=== PATIENT | male | born 1955 | race Caucasian/White ===

== ENCOUNTER 2018-08-13 10:27 | Outpatient (CLI) | payer BC, SELFPAY ==
[2018-08-14 10:15] LABS: PSA, Screening 9.1 ng/ml (0-4.5)
== END 2018-08-13 10:47 ==
PROVIDERS: Nurse Practitioner Gerontology; PCP Internal Medicine; Visit Provider Urology
DX: R97.20 Elevated prostate specific antigen [PSA] (principal)
CPT/HCPCS: 36415; 84153

== ENCOUNTER 2018-08-28 00:48 | Outpatient (CLI) | payer BC, SELFPAY ==
--- NOTE | 2018-08-28 10:40 | PROST_PTH ---
PATIENT: Dionicio Don LOC: [facility] U#:[id number] AGE/SX: 63/M ROOM: RE08/28/[address]: Jonas Cleveland MD : 1955 BED: DIS: 08/28/2018 SPEC #: [id number] RECD: 08/28/18 12:58 STATUS: BRIANNE RE #: [id number] SEPIDEH: 08/28/18 10:[address]: Jonas Cleveland DEPT: Surgical Specimen RECD BY: April Sanchez ENTERED: 08/28/18 12:59 SP TYPE: PROST OTHR DR: Jae Lerma Tissues: 1 - PROSTATE NEEDLE BIOPSY 2 - PROSTATE NEEDLE BIOPSY 3 - PROSTATE NEEDLE BIOPSY 4 - PROSTATE NEEDLE BIOPSY 5 - PROSTATE NEEDLE BIOPSY 6 - PROSTATE NEEDLE BIOPSY 7 - PROSTATE NEEDLE BIOPSY 8 - PROSTATE NEEDLE BIOPSY 9 - PROSTATE NEEDLE BIOPSY 10 - PROSTATE NEEDLE BIOPSY 11 - PROSTATE NEEDLE BIOPSY 12 - PROSTATE NEEDLE BIOPSY Procedures: GROSS AND MICRO LEVEL 4 IMMUNOPEROXIDASE STAIN Comments: [id number]
--- NOTE | 2018-08-28 10:53 | OPPNE_ITS ---
Date of service: 08/28/18 Time of Service: 10:49 Procedure Note Date of procedure: 08/28/18 Procedure: Transrectal ultrasound with ultrasound- guided biopsies of the prostate Surgeon/Proceduralist/Physician: Jonas Cleveland Procedure Diagnosis: Elevated PSA Procedure Indications: This is a 63-year-old gentleman with a history of an elevated PSA. He had a prostate biopsy about 10 years ago which showed no evidence of malignancy. Since then, his PSA has fluctuated, but has recently increased to 9.1 ng/mL. His digital rectal exam shows no suspicious palpable areas. He presents for repeat biopsy Procedure Description: The patient was given a pre-procedural antibiotic and mechanical bowel prep. He was brought to the radiology suite on 08/28/2018. He was placed in the left lateral position. Transrectal imaging the prostate was performed using a transrectal transducer. The prostate was imaged in transverse and longitudinal planes. The prostatic volume measured approximately 62 cc. A midline hypoechoic area was identified consistent with an ejaculatory duct cyst. The transition zone was enlarged and compressed the peripheral zone. No hypoechoic areas were seen in the peripheral zone. A periprosthetic nerve block was then performed using 1% lidocaine. A total of 12 laterally directed biopsies were to. Each biopsy was labeled and sent to pathology for permanent section. He tolerated this procedure well with no complications. He was cautioned about the possibility of postprocedural sepsis, blood in the urine, blood from the rectum or blood in the semen. He will follow-up with us in approximately 1 week for his pathology results
--- NOTE | 2018-08-28 10:57 | DI.US_ITS ---
SYMPTOMS/DIAGNOSIS: INCREASING PSA FROM 6.4 TO 9.1, R97.20 ULTRASOUND GUIDED PROSTATE BIOPSY: Ultrasound was provided for Dr. Cleveland for guidance with prostate biopsy. Prostate volume is calculated at 62 cc's. Please see procedure note for details.
== END 2018-08-28 01:08 ==
PROVIDERS: PCP Internal Medicine; Visit Provider Urology
DX: R97.20 Elevated prostate specific antigen [PSA] (principal); N40.0 Benign prostatic hyperplasia without lower urinary tract symptoms; N41.1 Chronic prostatitis; N42.89 Other specified disorders of prostate
CPT/HCPCS: 55700; 76942; 88305; 88361

== ENCOUNTER 2018-09-18 09:22 | Outpatient (CLI) | payer BC, SELFPAY ==
--- NOTE | 2018-09-18 13:06 | DI.RAD_ITS ---
SYMPTOMS/DIAGNOSIS: RT SHOULDER PAIN, M25.511 RIGHT SHOULDER: Multiple views. There is orthopedic hardware seen in the humeral head. The glenohumeral joint appears fairly well maintained. Mild hypertrophic changes are seen at the acromioclavicular joint. No acute fracture or dislocation is identified. The soft tissues are unremarkable. IMPRESSION: Mild degenerative changes of the right shoulder. Post surgical changes in the humeral head.
== END 2018-09-18 09:42 ==
PROVIDERS: PCP Internal Medicine; Visit Provider Internal Medicine
DX: M25.511 Pain in right shoulder (principal); M19.011 Primary osteoarthritis, right shoulder
CPT/HCPCS: 73030

== ENCOUNTER 2019-03-08 15:19 | Outpatient (CLI) | payer BC, SELFPAY ==
[2019-03-11 10:20] LABS: PSA, Diagnostic 7.9 ng/ml (0-4.5)
== END 2019-03-08 15:39 ==
PROVIDERS: PCP Internal Medicine; Visit Provider Urology
DX: R97.20 Elevated prostate specific antigen [PSA] (principal); N40.0 Benign prostatic hyperplasia without lower urinary tract symptoms
CPT/HCPCS: 36415; 84153

== ENCOUNTER 2019-09-16 12:33 | Outpatient (CLI) | payer BC, SELFPAY ==
[2019-09-17 16:43] LABS: PSA, Diagnostic 8.7 ng/mL (0.0-4.5)
== END 2019-09-16 12:53 ==
PROVIDERS: PCP Internal Medicine; Visit Provider Urology
DX: R97.20 Elevated prostate specific antigen [PSA] (principal)
CPT/HCPCS: 36415; 84153

== ENCOUNTER 2019-10-28 09:33 | Outpatient (REF) | payer BC, SELFPAY | END 2019-10-28 09:53 | LOC: NCHCN 09:33 | PROVIDERS: PCP Internal Medicine; Visit Provider Family Medicine | DX: Z00.00 Encounter for general adult medical examination without abnormal findings (principal); E78.5 Hyperlipidemia, unspecified | CPT/HCPCS: 80053; 80061 ==

== ENCOUNTER 2020-03-24 04:48 | Outpatient (CLI) | payer BC, SELFPAY ==
[2020-03-25 18:27] LABS: PSA, Diagnostic 7.8 ng/mL (0.0-4.5)
== END 2020-03-24 05:08 ==
PROVIDERS: PCP Internal Medicine; Visit Provider Urology
DX: R97.20 Elevated prostate specific antigen [PSA] (principal)
CPT/HCPCS: 36415; 84153

== ENCOUNTER 2020-07-29 17:27 | Outpatient (REF) | payer BC, SELFPAY ==
[2020-07-30 21:14] LABS: COVID-19 RT-PCR UVMMC Result Negative (Negative)
== END 2020-07-29 17:47 ==
LOC: NCHCN 17:27
PROVIDERS: PCP Internal Medicine; Visit Provider Internal Medicine
DX: Z20.828 Contact with and (suspected) exposure to other viral communicable diseases (principal)
CPT/HCPCS: U0003

== ENCOUNTER 2020-08-03 13:26 | Outpatient (REF) | payer BC, SELFPAY ==
[2020-08-04 21:52] LABS: COVID-19 RT-PCR Result NEGATIVE (Negative)
== END 2020-08-03 13:46 ==
LOC: NCHCN 13:26
PROVIDERS: PCP Internal Medicine; Visit Provider Internal Medicine
DX: Z20.822 Contact with and (suspected) exposure to COVID-19 (principal)
CPT/HCPCS: U0003

== ENCOUNTER 2020-10-08 02:44 | Outpatient (CLI) | payer BC, SELFPAY ==
[2020-10-08 21:50] LABS: PSA, Diagnostic 9.3 ng/mL (0.0-4.5)
== END 2020-10-08 02:45 | disposition home or self-care (01) ==
LOC: LBO 02:45
PROVIDERS: PCP Internal Medicine; Visit Provider Urology
DX: R97.20 Elevated prostate specific antigen [PSA] (principal)
CPT/HCPCS: 36415; 84153

== ENCOUNTER 2021-04-21 03:41 | Outpatient (CLI) | payer BC, SELFPAY ==
[2021-04-22 17:57] LABS: PSA, Diagnostic 9.6 ng/mL (0.0-4.5)
== END 2021-04-21 03:42 | disposition home or self-care (01) ==
PROVIDERS: PCP Internal Medicine; Visit Provider Nurse Practitioner Gerontology
DX: R97.20 Elevated prostate specific antigen [PSA] (principal)
CPT/HCPCS: 36415; 84153

== ENCOUNTER 2021-07-21 17:37 | Outpatient (REF) | payer BC, SELFPAY ==
[2021-07-21 21:15] LABS: HCT 49.3 % (40.0-50.0); HGB 16.3 g/dL (13.5-17.5); MCH 29.9 pg (27.0-33.0); MCHC 33.1 % (32.0-36.0); MCV 90.3 fL (80-95); MPV 10.3 fL (8.0-11.0); Platelet Count 399 10^3/uL (130-400); RBC 5.46 10^6/uL (4.36-5.78); RDW 11.8 % (11.8-14.1); RDW-SD 38.9 fL; WBC 8.34 10^3/uL (4.4-10.8)
[2021-07-21 21:22] LABS: ALT 46 U/L (16-63); AST 23 U/L (15-37); Albumin 4.1 g/dL (3.4-5.0); Alkaline Phosphatase 94 U/L (46-116); Anion Gap 8.6 mmol/L (3-11); BUN 18 mg/dL (7-18); Bilirubin, Total 0.4 mg/dL (0.2-1.0); CO2 27.4 mmol/L (21.0-32.0); CREATININE 1.2 mg/dL (0.70-1.30); Calcium 8.9 mg/dL (8.5-10.1); Chloride 104 mmol/L (98-107); Glucose 89 mg/dL (74-106); Potassium 4.2 mmol/L (3.5-5.1); Sodium 140 mmol/L (136-145); Total Protein 7.5 g/dL (6.4-8.2)
[2021-07-23 11:30] LABS: Hepatitis C Ab w Rflx HCV PCR Negative (Negative)
[2021-07-23 11:55] LABS: HIV-1/2 Ag & Ab Screen Negative (Negative)
== END 2021-07-21 17:38 | disposition home or self-care (01) ==
LOC: NCHCN 17:37
PROVIDERS: PCP Internal Medicine; Visit Provider Family Medicine
DX: E66.9 Obesity, unspecified (principal); Z00.00 Encounter for general adult medical examination without abnormal findings; Z11.4 Encounter for screening for human immunodeficiency virus [HIV]; Z11.59 Encounter for screening for other viral diseases
CPT/HCPCS: 80053; 85027; 86803; 87389

== ENCOUNTER 2021-10-20 03:10 | Outpatient (CLI) | payer BC, SELFPAY ==
[2021-10-20 22:45] LABS: PSA, Diagnostic 11.8 ng/mL (0.0-4.5)
== END 2021-10-20 03:11 | disposition home or self-care (01) ==
LOC: LBO 03:10
PROVIDERS: PCP Internal Medicine; Visit Provider Nurse Practitioner Gerontology
DX: R97.20 Elevated prostate specific antigen [PSA] (principal)
CPT/HCPCS: 36415; 84153

== ENCOUNTER 2021-10-26 17:33 | Outpatient (REF) | payer BC, SELFPAY | END 2021-10-26 17:34 | disposition home or self-care (01) | LOC: LBN 17:33 | PROVIDERS: PCP Family Medicine; Visit Provider Nurse Practitioner Gerontology | DX: R97.20 Elevated prostate specific antigen [PSA] (principal); Z01.812 Encounter for preprocedural laboratory examination | CPT/HCPCS: 82565 ==

== ENCOUNTER 2022-02-02 08:04 | Day surgery (SDC) | payer BC, SELFPAY ==
--- NOTE | 2022-02-02 06:27 | COLE_ITS ---
Colonoscopy Report Date of procedure: 02/02/22 Pre-op diagnosis general: Colon cancer screening Post-op diagnosis procedure note: other (mild diverticulosis and rectal polyps) Procedure: Colonoscopy with polypectomy Surgeon: Leanna Holloway Anesthesia Type: General:No Airway Estimated blood loss (mL): 2 Pathology: other (rectal polyps) Complications: None Disposition: same day Indications: The patient is here for Colonoscopy pre-op.? Patient reports having had a colonoscopy approximately 5 years ago.? Unable to locate these documents in patient's chart.? He has no family history of colon cancer patient reports a family history of Crohn's disease in his brother and a maternal aunt..? Patient describes noting some changes in his bowel habits which he directly correlates with his diet. -Discussed colonoscopy bowel prep as well as the procedure. Discussed possible c omplications of the procedure to include bleeding, pain, perforation, missed small lesion/polyp, sore throat, aspiration and adverse reaction to the medications. Questions were answered to patient?s satisfaction. No guarantees were implied or given.? Patient will hold his vitamins and herbal supplements for 5 days prior to his procedure. I spent 28? minutes in reviewing the record, seeing the patient, providing patient education, answering patient's questions and documenting in the medical record. P// Colonoscopy under sedation Prep: Miralax/Dulcolax Procedure Start Time: 10:57 Procedure End Time: 11:13 Retraction Time: 9 minutes Findings: 2 small polyps Procedure Description: After informed consent was obtained the patient was taken to the procedure room and placed in a left decubitous position. Monitors were applied and a time out was done. The patients name, date of , procedure, allergies to medications and metal in their body was reviewed. The patient was then sedated. Once sedated and comfortable a rectal exam was done. External exam was normal. Internal exam revealed a normal sphincter tone and no palpable masses. The prostate felt smooth and enlarged. The scope was then introduced and retro-flexed. No internal hemorrhoids, polyps or masses were identified on retro-flexion. The scope was then advanced to the cecum without difficulty. The ileocecal vlave and appendiceal orifice were identified. The prep was good. The scope was then slowly retracted over 9 minutes back into the rectum. Polyps were removed with cold forceps in the rectum. There was mild descending colon and sigmoid colon diverticulosis noted. The scope was removed and the patient was woken up and taken back to Same day surgery in stable condition. The patient tolerated the procedure well and there were no immediate complications.
--- NOTE | 2022-02-02 06:31 | W.PM.DSUDISC ---
Discharge Plan Disposition Patient Disposition: HOME Condition: Good Discharge Details Reason For Visit: colonoscopy Attending Provider: Leanna Holloway Primary Care Provider: Sudarshan Lassiter Home Meds and New Rx's Prescriptions: Continued ibuprofen 200 mg capsule 200 mg PO Q6H PRN ascorbate calcium (vitamin C) 500 mg tablet 500 mg PO DAILY vitamin B complex [B Complex-Vitamin B12] Tablet 1 tab PO DAILY Discontinued bisacodyl [Dulcolax (bisacodyl)] 5 mg tablet,delayed release (DR/EC) 5 mg PO ONCE Qty: 4 0RF Rx Instructions: Take according to provider's instructions for colonoscopy prep. polyethylene glycol 3350 17 gram/dose powder 17 g PO ONCE Qty: 238 0RF Rx Instructions: To be taken as directed by prescriber's office for colonoscopy prep. Discharge Instructions Instructions: Diverticulosis (DC) Additional Instructions: Findings: 2 small polyps mild diverticulosis Please call if you develop: fevers >101.5 Nausea or Vomiting Abdominal pain that is not transient Rectal bleeding that is more then a tbsp A hard abdomen and inability to pass gas DAY SURGERY UNIT POST ENDOSCOPY INSTRUCTIONS Instructions for everyone who is given Anesthesia: For your safety, please do the following for the next 24 Hours: a. Do not drive or operate dangerous equipment b. Do not drink alcohol beverages or use any recreational drugs for the first 24 hours or while taking pain medications. The medications in your body may have a reaction that can be dangerous. c. Do not make any important decisions or sign any important papers 1. Generally there are no restrictions on your activity after a day or so has gone by, but you may feel a bit fatigued for a few days. 2. After you arrive home you may have a light meal and return to a normal diet as you can tolerate it without feeling sick to your stomach. 3. After surgery, you may feel pain or discomfort. This should be only transient, but if it persists please contact your doctor. 4. If there are any questions regarding the findings of your procedure, please feel free to contact your doctor. 6. If you are unable to contact your doctor with a problem, contact the hospital at [phone]. 7. Continue all your regular medications unless directed otherwise. I understand the above instructions and have no questions. Signature of Patient or Responsible Adult Escort Date/Time Name of Responsible Adult Escort Signature of Nurse Date/Time Activity:: Activity as Tolerated Diet:: As Tolerated Discharge Orders Discharge Orders: Discharge Order (Routine); Ordered 02/02/22 Ordered By: Leanna Holloway
[2022-02-02 08:30] VITALS: BP 132/88; PULSE 76; RESP 16; TEMP 37; O2SAT 95
[2022-02-02] MEDS: Lactated Ringers 1,000 ML 80 ML IV (08:42)
--- NOTE | 2022-02-02 09:36 | W.ANESPRE ---
General Info Date of Service Date Performed: 02/02/22 Height: 5 ft 10 in Weight: 103.3 kg Body Mass Index (BMI): 32.6 Surgical Procedure: Operation Date: 02/02/22 10:35 Proposed Procedure Side Surgeon p Colonoscopy Leanna Holloway MD Meds Allergies and Home Medications Allergies Allergy/AdvReac Type Severity Reaction Status Date / Time acetaminophen [From Tylenol] Allergy Mild Skin Rash Verified 02/02/22 08:30 Home Medication Medication Instructions Recorded ibuprofen 200 mg capsule 200 mg PO Q6H PRN 09/20/19 ascorbate calcium (vitamin C) 500 500 mg PO DAILY 01/06/22 mg tablet bisacodyl 5 mg tablet,delayed 5 mg PO ONCE #4 tabs 01/06/22 release (Dulcolax (bisacodyl)) polyethylene glycol 3350 17 17 g PO ONCE #238 grams 01/06/22 gram/dose oral powder vitamin B complex (B 1 tab PO DAILY 01/06/22 Complex-Vitamin B12 tablet) Current Visit Medications: Current Medications Generic Name Dose Route Start Last Admin Trade Name Morganq PRN Reason Stop Dose Admin Hyoscyamine Sulfate 0.125 mg 02/02/22 06:31 Hyoscyamine 0.125 Mg Sl/Oral/Chew SL DIRECTED PRN Ringer's Solution 1,000 mls @ 80 mls/hr 02/02/22 06:00 02/02/22 08:42 IV 03/03/22 23:59 80 mls/hr INFUSION WILMA Administration IV Miscellaneous Supplies 1 each 02/02/22 06:00 Iv Access IV 03/03/22 23:59 DIRECTED WILMA Ondansetron HCl 4 mg 02/02/22 06:31 Ondansetron 4 Mg/2 Ml Vial IVP Q4H PRN PRN Nausea / Vomiting Sodium Chloride 0 ml 02/02/22 06:00 Normal Saline Flush 10 Ml Syr IV 03/03/22 23:59 PRN PRN Sodium Chloride 0 ml 02/02/22 06:00 Normal Saline 10 Ml Vial IJ 03/03/22 23:59 DIRECTED PRN Sterile Water 0 ml 02/02/22 06:00 Water,Injection,Sterile 10 Ml Vial IJ 03/03/22 23:59 DIRECTED PRN PFSH Active Problems Active Problems: Problem Status Onset Code Diarrhea R19.7 Screening for colon cancer Z12.11 CHRISSIE (obstructive sleep apnea) G47.33 Medical History Medical History (Updated 02/02/22 @ 08:29 by Peggy King) Deviated nasal septum (05/28/15) Dislocation of right shoulder joint Elevated PSA (02/08/18) Hypertrophy of inferior nasal turbinate (05/28/15) Nasal obstruction (05/28/15) Surgical History Surgical History (Updated 02/02/22 @ 08:29 by Peggy King) Status post total right knee replacement Tobacco Smoking/Tobacco Use Status: Never Alcohol Alcohol Intake: current Alcohol intake frequency: a few times a week Alcohol type: beer Substance Use Substance use: Never Substance use type: does not use Vital Signs and Lab Results Vital Signs Most Recent Vital Signs in EMR: Most Recent Vital Signs Temp Pulse Resp BP Pulse Ox 37.0 C 76 16 132/88 95 02/02/22 08:30 02/02/22 08:30 02/02/22 08:30 02/02/22 08:30 02/02/22 08:30 Lab Results Blood Type / Crossmatch: No Data to Display Complete Blood Count: No Data to Display Complete Metabolic Panel: No Data to Display Liver Function Panel: No Data to Display Coagulation Panel: No Data to Display Cardiac Panel: No Data to Display Arterial Blood Gas: No Data to Display Venous Blood Gas: No Data to Display Pancreas Panel: No Data to Display Thyroid Panel: No Data to Display Infectious Disease: No Data to Display Blood Cultures: No Data to Display Toxicology Panel: No Data to Display Anesthesia Assessment and Plan Anesthesia History Personal History: No History of Anesthesia Complications Family History: No Family History of Anesthesia Complications Exercise Tolerance Exercise Tolerance: Metabolic Equivalents>4 Pertinent Negatives Pertinent Negatives: No Symptoms of GERD, No Major Cardiovascular Symptoms or Complaints and No Major Pulmonary Symptoms or Complaints Cardiac & Pulmonary Exam Cardiac Exam: Normal S1/S2 Heart Sounds Pulmonary Exam: Clear Bilateral Breath Sounds Implantable Cardiac Device Does patient have a Pacemaker or an ICD?: No Airway Exam Known Difficult Airway: No Mallampati Class: 1 Mouth Opening: Normal (> 3cm) Thyromental Distance: Greater than 3 cm Neck Range of Motion: Full ROM Neck Circumference: Normal Teeth Condition: Normal Dentition ASA Classification ASA Score: ASA 2 Emergency Case?: No NPO Status NPO Status: NPO Clears >2 hours, Solids >8 hours Anesthesia Plan Resuscitation Status: Full Code Anesthesia Technique: General Anesthesia Airway Planned: Natural Airway Monitors Used: Standard Monitors
[2022-02-02 09:39] VITALS: BMI 32.6
--- NOTE | 2022-02-02 11:13 | BOWEL_PTH ---
PATIENT: Dionicio Don LOC: [facility] U#:[id number] AGE/SX: 66/M ROOM: RE02/02/[address]: Leanna Holloway MD : 1955 BED: DIS: 02/02/2022 SPEC #: [id number] RECD: 02/02/22 12:49 STATUS: BRIANNE REQ #: [id number] SEPIDEH: 02/02/22 11:[address]: Leanna Holloway DEPT: Surgical Specimen RECD BY: April Sanchez ENTERED: 02/02/22 12:50 SP TYPE: Bowel OTHR DR: Sudarshan Lassiter Tissues: 1 - BIOPSY BOWEL Procedures: GROSS AND MICRO LEVEL 4 Comments: [id number]
[2022-02-02 11:25] VITALS: BP 107/78; PULSE 83; RESP 18; TEMP 36.1; O2SAT 95
--- NOTE | 2022-02-02 11:37 | W.ANESPOSTOP ---
Postoperative Evaluation Date, Time and Location Date Performed: 02/02/22 Time Performed: 11:25 Patient Location: Day Surgery Unit Vital Signs Most Recent Imported Vital Signs: Most Recent Vital Signs Temp Pulse Resp BP Pulse Ox 36.1 C L 83 18 107/78 95 02/02/22 11:25 02/02/22 11:25 02/02/22 11:25 02/02/22 11:25 02/02/22 11:25 Pain Score Most Recent Pain Score: Most Recent Pain Score Pain Level 0 02/02/22 11:25 Assessment Mental Status: Awake (Alert & Oriented to Patient Baseline) Airway and Respiratory Function: Patent airway with normal (patient baseline) respiratory exam Cardiovascular Function: Hemodynamically Stable Hydration Status: Adequately Hydrated Nausea & Vomiting: No Nausea or Vomiting Pain: Pt. Denies Any Pain Peripheral Nerve Block: Patient did not receive a nerve block
[2022-02-02 12:00] VITALS: BP 107/66; PULSE 69; RESP 16; TEMP 36.2; O2SAT 96
== END 2022-02-02 12:14 | disposition home or self-care (01) ==
PROVIDERS: PCP Family Medicine; Visit Provider Surgery
PROC: 0DJD8ZZ Inspection of Lower Intestinal Tract, Via Natural or Artificial Opening Endoscopic (ICD-10-PCS; CPT 45378; principal; 2022-02-02 10:30)
DX: Z12.11 Encounter for screening for malignant neoplasm of colon (principal); K62.1 Rectal polyp; K57.30 Diverticulosis of large intestine without perforation or abscess without bleeding; Z83.79 Family history of other diseases of the digestive system; G47.33 Obstructive sleep apnea (adult) (pediatric)
CPT/HCPCS: 45380; 88305

== ENCOUNTER 2022-06-02 11:01 | Outpatient (REF) | payer MEDICARE, BC, SELFPAY ==
[2022-06-02 15:05] LABS: HCT 50.6 % (40.0-50.0); HGB 16.6 g/dL (13.5-17.5); MCH 29.7 pg (27.0-33.0); MCHC 32.8 % (32.0-36.0); MCV 91 fL (80-95); MPV 10.4 fL (8.0-11.0); Platelet Count 358 10^3/uL (130-400); RBC 5.58 10^6/uL (4.36-5.78); RDW 12.2 % (11.8-14.1); RDW-SD 40.6 fL; WBC 5.79 10^3/uL (4.4-10.8)
[2022-06-02 15:20] LABS: ALT 46 U/L (16-63); AST 27 U/L (15-37); Albumin 4.1 g/dL (3.4-5.0); Alkaline Phosphatase 92 U/L (46-116); Anion Gap 5.7 mmol/L (3-11); BUN 18 mg/dL (7-18); Bilirubin, Total 1.1 mg/dL (0.2-1.0); CO2 31.3 mmol/L (21.0-32.0); CREATININE 1.1 mg/dL (0.70-1.30); Calcium 9.2 mg/dL (8.5-10.1); Calculated LDL 122 mg/dL (<100); Chloride 105 mmol/L (98-107); Cholesterol 184 mg/dL (<200); Glucose 88 mg/dL (74-106); HDL Cholesterol 51 mg/dL (40-60); Potassium 5.2 mmol/L (3.5-5.1); Sodium 142 mmol/L (136-145); Total Protein 7.4 g/dL (6.4-8.2); Triglyceride 57 mg/dL (<150)
[2022-06-03 19:52] LABS: PSA, Diagnostic 10.4 ng/mL (<=4.5)
== END 2022-06-02 11:02 | disposition home or self-care (01) ==
LOC: NCHCN 11:01
PROVIDERS: PCP Family Medicine; Visit Provider Family Medicine
DX: R97.20 Elevated prostate specific antigen [PSA] (principal); E66.9 Obesity, unspecified; Z00.00 Encounter for general adult medical examination without abnormal findings
CPT/HCPCS: 80053; 80061; 85027; 84153

== ENCOUNTER 2022-06-21 03:45 | Outpatient (CLI) | payer MEDICARE, BC, SELFPAY ==
[2022-06-22 17:58] LABS: PSA, Diagnostic 12.3 ng/mL (<=4.5)
== END 2022-06-21 03:46 | disposition home or self-care (01) ==
LOC: LBO 03:45
PROVIDERS: PCP Family Medicine; Visit Provider Nurse Practitioner Gerontology
DX: R97.20 Elevated prostate specific antigen [PSA] (principal)
CPT/HCPCS: 36415; 84153

== ENCOUNTER → 2022-06-28 15:25 | Outpatient (BNVA) | payer MEDICARE, BC, SELFPAY | PROVIDERS: PCP Family Medicine; Referring Provider Family Medicine; Visit Provider Nurse Practitioner Gerontology | DX: R97.20 Elevated prostate specific antigen [PSA] (principal) | CPT/HCPCS: 99214 ==

== ENCOUNTER → 2022-07-07 01:28 | Outpatient (CLI) | payer MEDICARE, BC, SELFPAY ==
--- NOTE | 2022-07-07 07:45 | DI.MRI_ITS ---
Exam(s) MR LUMBAR SPINE WO EXAM: MR LUMBAR SPINE WO CLINICAL HISTORY: LUMBAR SPINAL STENOSIS, M48.061. TECHNIQUE: Multiplanar multisequence MRI of the Lumbar spine was performed. COMPARISON: No exams were available for comparison FINDINGS: Bones: The last intervertebral disc space is designated the L5/S1 level for the numbering purpose of this examination. The vertebral body heights are well maintained. Alignment is satisfactory. The si gnal characteristics are unremarkable. Cord: The conus tip ends at the T12 level. It is of normal size and signal intensity. T12-L1: No disc herniations or bulges are present. No central spinal canal or neural foraminal stenos is. L1-2: No disc herniations or bulges are present. No central spinal canal or neural foraminal stenosis . L2-3: No disc herniations or bulges are present. No central spinal canal or neural foraminal stenosis . L3-4: There is a small right paracentral disc herniation. Hypertrophic changes of the facets and lig amentum flavum are present. There is [id number] central spinal canal stenosis. There is moder ate right and mild left neural foraminal stenosis. L4-5: There is a small diffuse disc bulge. There also appears to be a small central disc herniation. Mild degenerative changes of the facets are seen. No significant central spinal canal stenosis is present. There is mild bilateral neural foraminal stenosis. L5-S1: There is a small central disc herniation. No central spinal canal or neural foraminal stenosi s. Soft tissues: The visualized SI joints and sacrum are well maintained. The paraspinal soft tissues ar e unremarkable. IMPRESSION: 1. Multilevel degenerative changes in the lumbar spine. 2. Degenerative changes are most marked at the L3-4 level where there is a right paracentral disc her niation and degenerative facet arthropathy. These all contribute to cause [id number] central s ramiro canal stenosis and moderate right and mild left neural foraminal stenosis. DATA REPOSITORY:
== END ==
PROVIDERS: PCP Family Medicine; Visit Provider Family Medicine
DX: M47.816 Spondylosis without myelopathy or radiculopathy, lumbar region (principal); M48.061 Spinal stenosis, lumbar region without neurogenic claudication
CPT/HCPCS: 72148

== ENCOUNTER 2022-12-21 04:25 | Outpatient (CLI) | payer MEDICARE, BC, SELFPAY ==
[2022-12-21 23:04] LABS: PSA, Screening 10.4 ng/mL (<=4.5)
== END 2022-12-21 04:26 | disposition home or self-care (01) ==
LOC: LBO 04:25
PROVIDERS: PCP Family Medicine; Visit Provider Nurse Practitioner Gerontology
DX: R97.20 Elevated prostate specific antigen [PSA] (principal); Z12.5 Encounter for screening for malignant neoplasm of prostate
CPT/HCPCS: 36415; 84153

== ENCOUNTER 2023-02-20 12:18 | Outpatient (REF) | payer MEDICARE, BC, SELFPAY ==
[2023-02-20 15:30] LABS: HCT 46.7 % (40.0-50.0); MCH 30.5 pg (27.0-33.0); MCHC 34.3 % (32.0-36.0); MCV 89 fL (80-95); MPV 10.4 fL (8.0-11.0); Platelet Count 350 10^3/uL (130-400); RBC 5.25 10^6/uL (4.36-5.78); WBC 7.13 10^3/uL (4.4-10.8)
[2023-02-20 15:42] LABS: Anion Gap 9.5 mmol/L (3-11); BUN 25 mg/dL (7-18); CO2 25.5 mmol/L (21.0-32.0); CREATININE 1.1 mg/dL (0.70-1.30); Calcium 8.8 mg/dL (8.5-10.1); Chloride 105 mmol/L (98-107); Glucose 87 mg/dL (74-106); Potassium 4.1 mmol/L (3.5-5.1); Sodium 140 mmol/L (136-145)
== END 2023-02-20 12:19 | disposition home or self-care (01) ==
LOC: NCHCN 12:18
PROVIDERS: PCP Family Medicine; Visit Provider Family Medicine
DX: G47.30 Sleep apnea, unspecified (principal); E78.5 Hyperlipidemia, unspecified
CPT/HCPCS: 80048; 85027

== ENCOUNTER 2023-07-12 09:17 | Emergency (ER) | payer MEDICARE, BC, SELFPAY ==
[2023-07-12 09:23] VITALS: BP 138/80; PULSE 81; RESP 16; TEMP 36.4; O2SAT 95
--- NOTE | 2023-07-12 10:07 | ED.GENADUL_ITS ---
Discharge Plan Disposition Patient Disposition: Home Discharge Details Clinical Impression: Laceration of scalp Primary Care Provider: Sudarshan Lassiter ED Provider: April Ang Home Meds and New Rx's Prescriptions: Continued ibuprofen 200 mg capsule 200 mg PO Q6H PRN ascorbate calcium (vitamin C) 500 mg tablet 500 mg PO DAILY loratadine [Allergy Relief (loratadine)] 10 mg tablet 10 mg PO DAILY Discharge Instructions Instructions: Facial Laceration (ED) Additional Instructions: Patient presents clean and dry, try to keep it clean for 24 hours Sutures will dissolve on their own Keep covered after sutures are removed outside as this area will burn with new skin Recommend sunscreen in the summer for at least 6 months Return with spreading redness, fever, worsening pain, headache, nausea, vomiting Referrals: Sudarshan Lassiter MD [Primary Care Provider] - Discharge Data Discharge Date/Time-TO BE ENTERED AT DEPARTURE: 07/12/23 10:36 Medical Decision Making Alert and oriented 68-year-old male presenting with scalp laceration just prior to arrival Tetanus 2008 will update the booster Alert and oriented, GCS 15, no cervical spine tenderness, approximately 1 inch laceration to the parietal region of scalp, no active bleeding Pupils equal round reactive to light and accommodation, ambulatory with steady gait 7 chromic sutures placed, will likely absorb on own, encouraged to return to r emove them if not completely dissolved in 7 to 10 days Return precautions reviewed and patient expressed understanding Medical Records Medical records reviewed: Yes I reviewed the patient's medical records. HPI General Date/Time Provider Initiated Documentation: 07/12/23 09:26 . HPI Narrative: This 68-year-old male presents with laceration on his scalp after hitting his head on angle iron and basement,, denies history of coagulopathy or loss of consciousness. Denies any headache or vision change. Unsure regarding tetanus. Related Data Home Medications Medication Instructions Recorded Confirmed ibuprofen 200 mg capsule 200 mg PO Q6H PRN 09/20/19 07/12/23 ascorbate calcium (vitamin C) 500 500 mg PO DAILY 01/06/22 07/12/23 mg tablet loratadine 10 mg tablet (Allergy 10 mg PO DAILY 07/12/23 07/12/23 Relief (loratadine)) Allergies Allergy/AdvReac Type Severity Reaction Status Date / Time acetaminophen [From Tylenol] Allergy Mild Skin Rash Verified 07/12/23 09:27 adhesive tape AdvReac Mild Hives Unverified 07/12/23 09:27 latex AdvReac Mild Unverified 07/12/23 09:27 General Stated Complaint: Laceration PREMA: 4 PFSH All Active Problems (Updated 07/12/23 @ 10:05 by SABAS Goodman) Laceration of scalp (Acute) Hyperplastic colon polyp (Acute) Diarrhea (Acute) CHRISSIE (obstructive sleep apnea) (Chronic) Medical History (Updated 07/12/23 @ 10:05 by SABAS Goodman) Dislocation of right shoulder joint Screening for colon cancer Deviated nasal septum (05/28/15) Elevated PSA (02/08/18) Hypertrophy of inferior nasal turbinate (05/28/15) Nasal obstruction (05/28/15) Surgical History (Updated 02/08/22 @ 06:49 by Jossie Ocampo RN) History of colonoscopy (~01/2022) Status post total right knee replacement Social History (Updated 01/06/22 @ 09:01 by SABAS Cortez) Smoking/Tobacco Use Status: Never Smoking risk assessment performed?: Yes Alcohol Intake: current Alcohol Intake frequency: a few times a week Alcohol type: beer Drug use: Never Substance use type: does not use Housing: house Do you feel safe at home: Yes Do you feel safe in your relationship?: Yes Course Vital Signs Vital signs: Vital Signs Temperature 36.4 C 07/12/23 09:23 Pulse 81 07/12/23 09:23 Respiratory Rate 16 07/12/23 09:23 Blood Pressure 138/80 07/12/23 09:23 Pulse Oximetry 95 07/12/23 09:23 Temperature 36.4 C 07/12/23 09:23 Pulse 81 07/12/23 09:23 Respiratory Rate 16 07/12/23 09:23 Respiratory Effort Normal, Non-Labored 07/12/23 09:29 Blood Pressure 138/80 07/12/23 09:23 Pulse Oximetry 95 07/12/23 09:23 Oxygen Delivery Method Room Air 07/12/23 09:23 Oxygen Flow Rate 0 07/12/23 09:23 Pain Level 1 07/12/23 09:23 Procedures Laceration Laceration 1: Site: scalp Side (If applicable): right Size (cm): 2 Description: irregular Depth: simple, single layer Local Anesthetic: Lidocaine 1% and with Epi Amount of anesthesia used (mL): 3 Pre-repair: wound explored and irrigated extensively Skin layer closed with: other (chromic) Size (cm): 5-0 Number of sutures: 7 Technique: simple, interrupted PAWSS Have you Been Recently Intoxicated or Drunk Within the Last 30 days?: No Have you Ever Experienced Previous Episodes of Alcohol Withdrawal?: No Have you ever Experienced Withdrawal Seizures?: No Have you ever Experienced Delirium Tremens(DT)s?: No Have you ever undergone Alcohol Rehabilitation Treatment (i.e, inpt ot outpatient treatment programs)?: No Have you ever Experienced Blackouts?: No Have you ever Combined Alcohol with other Downers within the last 90 days?: No Have you ever Combined Alcohol with any other Substance of Abuse during the last 90 days?: No Result: 0
== END 2023-07-12 10:36 | disposition home or self-care (01) ==
PROVIDERS: Emergency Provider Physician Assistant; PCP Family Medicine
DX: S01.01XA Laceration without foreign body of scalp, initial encounter (principal); W22.09XA Striking against other stationary object, initial encounter; Y93.89 Activity, other specified; Y92.018 Other place in single-family (private) house as the place of occurrence of the external cause; Z23 Encounter for immunization
CPT/HCPCS: 12001; 90471; 99283

== ENCOUNTER 2024-05-07 16:22 | Outpatient (REF) | payer MEDICARE, BC, SELFPAY ==
--- OUTSIDE RECORDS SUMMARY | 2024-05-07 16:25 | XMS_ITS | Encounter Summary ---
Author Organization [facility] Address [address] [place] [address] Care Team Providers Care Jointer Operator Name Role Phone Jae Lerma MD Primary Care Provider [phone] Reason for Visit * Reason Onset Date Comments Follow-up 01/14/2019 Encounter Details Date Type Department Care Team (Late st Contact Info) Description 01/14/2019 Telephone [facility] [place] [address] [place] [address] Audrey Saha RN Follow-up Social History Tobacco Use Types Packs/Day Years Used Date Smoking Tobacco: Never Smokeless Tobacco: Former Alcohol Use Standard Drinks/Week Comments Yes 0 (1 standard drink = 0.6 oz pur e alcohol) Sex and Gender Information Value Date Recorded Sex Assigned at Not on file Gender Identity Not on file Sexual Orientation Not on file documented as of this encounter Miscellaneous Notes * Telephone Encounter - Audrey Benitez RN - 01/14/2019 0849 EDT Spoke with patient, discussed AHI from previous sleep study and informed patient he will need to have another sleep study if he would like to move forward with Inspire. Patient is being seen to try anew mask today and will discuss inspire with provider and let us know what he decides to do. documented in this encounter Plan of Treatment Not on file documented as of this encounter Visit Diagnoses Not on filedocumented in this encounter Care Teams Jointer Operator Relationship Specialty Start Date End Date Jae Lerma MD [address] [place] [address] PCP - General 01/08/19 12/21/21 documented as of this encounter
--- OUTSIDE RECORDS SUMMARY | 2024-05-07 16:25 | XMS_ITS | Encounter Summary ---
Author Organization [facility] Address [address] [place] [address] Care Team Providers Care Grass Farm Laborer Name Role Phone Jae Lerma MD Primary Care Provider [phone] Sudarshan Lassiter MD Primary Care Provider [phone] Encounter Details Date Type Department Care Team (Late st Contact Info) Description 08/03/2020 Lab Requisition [facility] Pathology & Laboratory Medicine - [address] [id number] Outr Resulting Lab, Provider Social History Tobacco Use Types Packs/Day Years Used Date Smoking Tobacco: Never Smokeless Tobacco: Former Alcohol Use Standard Drinks/Week Comments Yes 0 (1 standard drink = 0.6 oz pur e alcohol) Interpersonal Safety Answer Date Record ed Physically Hurt Never 02/23/2020 Verbally Threaten Not on file 02/23/2020 Sex and Gender Information Value Date Recorded Sex Assigned at Not on file Gender Identity Not on file Sexual Orientation Not on file documented as of this encounter Plan of Treatment Not on file documented as of this encounter Procedures Procedure Name Priority Date/Time Associated Diagnosis Comments DO NOT ORDER STANDALONE - BROAD COVID TEST Today 08/03/2020 10:30 EST COVID-19 TESTING Routine 08/03/2020 10:3 0 EST documented in this encounter Results * DO NOT ORDER STANDALONE - BROAD COVID TEST (08/03/2020 10:30 EST) COVID-19 rt-PCR Result NEGATIVE Negative 08/04/2020 20:45 [facility] Comment: 2019-novel Coronavirus (2019-nCoV) not detected by the qRT-PCR assay. Consider testing for other respiratory viruses or re-collecting for 2019-nCoV testing. Note: Optimum timing for peak viral levels during infections caused by 2019-nCoV have not been determined. Collection of multiple specimens from the same patient may be necessary to detect the virus. Limitations Positive results are indicative of active infection with SARS-CoV-2 but do not rule out bacterial infection or co-infection with other viruses. The agent detected may not be the definite cause of disease. In addition, detection of viral RNA may not indicate the presence of infectious virus or that SARS-CoV-2 is the causative agent for clinical symptoms. Negative results do not preclude SARS-CoV-2 infection and should not be used as the sole basis for patient management decisions. Negative results must be combined with clinical observations, patient history, and epidemiological information. False negative results may also occur if amplification inhibitors are present in the specimen or if inadequate numbers of organisms are present in the specimen. Optimum specimen types and timing for peak viral levels during infections caused by SARS-CoV-2 have not been fully determined. Collection of multiple specimens (types and time points) from the same patient may be necessary to detect the virus. The test was validated for use with upper respiratory specimens obtained via nasopharyngeal or oropharyngeal swabs in VTM, UTM, M4, M5, M6, saline, and MTM media. The performance of this test has not been established for other specimens. Specimens collected using other FDA recommended Specimen Collection Materials listed in the FDA COVID-19 Diagnostic Technologies communication (October 17, 2019) are processed with the caveat that they were not all validated for use with this test and the result must be interpreted in this context. Furthermore, a false negative results may occur if a specimen is improperly collected, transported or handled. If the virus mutates in the RT-PCR target region, SARS-CoV-2 may not be detected or may be detected less predictably. Inhibitors or other types of interference may produce a false negative result. An interference study evaluating the effect of common cold medications was not performed. This test is not FDA-cleared but its performance characteristics were established by our CLIA-certified, CAP-accredited, high complexity laboratory in accordance with CLIA regulations, College [employer] (CAP) guidelines (Oct 10, 2019), and FDA guidance (Sep 21, 2019). This test is only for use under the Food and Drug Administration's Emergency Use Authorization. Swab ENTIRE NASOPHARYNX / Unknown 08/03/2020 10:30 EST 08/03/2020 21:06 EST Provider Outr Resulting Lab MICROBIOLOGY - GENERAL ORDERABLES [facility] [place], [place] * COVID-19 TESTING (08/03/2020 10:30 EST) Pathologist [facility] COVID-19 rt-PCR Result NEGATIVE Negative 08/04/2020 21:47 EST [facility] Comment: 2019-novel Coronavirus (2019-nCoV) not detected by the qRT-PCR assay. Consider testing for other respiratory viruses or re-collecting for 2019-nCoV testing. Note: Optimum timing for peak viral levels during infections caused by 2019-nCoV have not been determined. Collection of multiple specimens from the same patient may be necessary to detect the virus. Limitations Positive results are indicative of active infection with SARS-CoV-2 but do not rule out bacterial infection or co-infection with other viruses. The agent detected may not be the definite cause of disease. In addition, detection of viral RNA may not indicate the presence of infectious virus or that SARS-CoV-2 is the causative agent for clinical symptoms. Negative results do not preclude SARS-CoV-2 infection and should not be used as the sole basis for patient management decisions. Negative results must be combined with clinical observations, patient history, and epidemiological information. False negative results may also occur if amplification inhibitors are present in the specimen or if inadequate numbers of organisms are present in the specimen. Optimum specimen types and timing for peak viral levels during infections caused by SARS-CoV-2 have not been fully determined. Collection of multiple specimens (types and time points) from the same patient may be necessary to detect the virus. The test was validated for use with upper respiratory specimens obtained via nasopharyngeal or oropharyngeal swabs in VTM, UTM, M4, M5, M6, saline, and MTM media. The performance of this test has not been established for other specimens. Specimens collected using other FDA recommended Specimen Collection Materials listed in the FDA COVID-19 [employer] communication (October 17, 2019) are processed with the caveat that they were not all validated for use with this test and the result must be interpreted in this context. Furthermore, a false negative results may occur if a specimen is improperly collected, transported or handled. If the virus mutates in the RT-PCR target region, SARS-CoV-2 may not be detected or may be detected less predictably. Inhibitors or other types of interference may produce a false negative result. An interference study evaluating the effect of common cold medications was not performed. This test is not FDA-cleared but its performance characteristics were established by our CLIA-certified, CAP-accredited, high complexity laboratory in accordance with CLIA regulations, College of [employer]ologists (CAP) guidelines (Oct 10, 2019), and FDA guidance (Sep 21, 2019). This test is only for use under the Food and Drug Administration's Emergency Use Authorization. Performing Lab [facility] 08/04/2020 21:47 EST [facility] Swab 08/03/2020 10:3 0 EST 08/03/2020 21:06 EST Provider Outr Resulting Lab MICROBIOLOGY - GENERAL ORDERABLES [facility] [address] [place] [address] [facility] [place], [place] documented in this encounter Visit Diagnoses Not on filedocumented in this encounter Care Teams Grass Farm Laborer Relationship Specialty Start Date End Date Jae Lerma MD [address] [place] [address] PCP - General 01/08/19 12/21/21 Sudarshan Lassiter MD [address] [place] [address] PCP - General Emergency Medicine 12/22/21 documented as of this encounter
--- OUTSIDE RECORDS SUMMARY | 2024-05-07 16:25 | XMS_ITS | Encounter Summary ---
Author Organization [facility] Address [address] [place] [id number] Care Team Providers Care Inventory Control Analyst Name Role Phone Jae Lerma MD Primary Care Provider [phone] Sudarshan Lassiter MD Primary Care Provider [phone] Encounter Details Date Type Department Care Team (Late st Contact Info) Description 09/16/2019 Lab Requisition [facility] Pathology & Laboratory Medicine - Main [address] [address] Unknown, Provider, Social History Tobacco Use Types Packs/Day Years [...] Procedure Name Priority Date/Time Associated Diagnosis Comments PSA TOTAL, DIAGNOSTIC Today 09/16/2019 12:56 EST documented in this encounter Results * (ABNORMAL) PSA TOTAL, DIAGNOSTIC (09/16/2019 12:56 EST) PSA 8.7(H) 0.0 - 4.5 ng/mL 09/17/2019 10:01 EST [facility] Blood VENOUS BLOOD / Unknown 09/16/2019 12:56 EST 09/16/2019 21:04 EST Narrative [facility] - 09/17/2019 10:01 EST NOTE: Serum PSA concentration should not be interpreted as absolute evidence for the presence or absence of malignant disease. Assayed on Siemens [employer] XPT using chemiluminescent technology.??Values obtained by using different assay methods cannot be used interchangeably. Provider Unknown CHEMISTRY & BLOOD GA S ORDERABLES [facility] [address] [place] [address] documented in this encounter Visit Diagnoses Not on filedocumented in this encounter Care Teams Inventory Control Analyst Relationship Specialty Start Date End Date Jae Lerma MD [address] [place] [address] PCP - General 01/08/19 12/21/21 Sudarshan Lassiter MD [address] [place] [address] PCP - General Emergency Medicine 12/22/21 documented as of this encounter
--- OUTSIDE RECORDS SUMMARY | 2024-05-07 16:25 | XMS_ITS | Encounter Summary ---
Author Organization [facility] Address [address] [place] [address] Care Team Providers Care Vp Of Global Marketing Name Role Phone Jae Lerma MD Primary Care Provider [phone] Sudarshan Lassiter MD Primary Care Provider [phone] Encounter Details Date Type Department Care Team (Late st Contact Info) Description 07/29/2020 Lab Requisition [facility] Pathology & Laboratory Medicine - [address] [id number] Outr Resulting Lab, Provider Social History Tobacco [...] Procedure Name Priority Date/Time Associated Diagnosis Comments ZZCOVID-19 TEST [facility] PCR Today 07/29/2020 13:00 EST COVID-19 TESTING Routine 07/29/2020 13:0 0 EST documented in this encounter Results * COVID-19 TEST [facility] PCR (07/29/2020 13:00 EST) Swab ENTIRE NASOPHARYNX / Unknown 07/29/2020 13:00 EST 07/29/2020 15:40 EST Provider Outr Resulting Lab MICROBIOLOGY - GENERAL ORDERABLES Performing Organization Address City/[facility] Co de Phone Number [facility] [address] [place] [address] * COVID-19 TESTING (07/29/2020 13:00 EST) COVID-19 rt-PCR Result Negative Negative 07/30/2020 21:08 EST [facility] Comment: Negative results do not preclude 2019-nCoV infection and should not be used as the sole basis for treatment or other patient management decisions. Negative results must be combined with clinical observations, patient history, and epidemiological information. This test was developed and its performance characteristics determined by [facility]. It has not been cleared or approved by the US Food and Drug Administration. FDA does not require this test to go through premarket FDA review. This test is used for clinical purposes. It should not be regarded as investigational or for research. This laboratory is certified under the Clinical Laboratory Improvement Amendments (CLIA) as qualified to perform high complexity clinical laboratory testing. This test is based on the [facility] COVID-19 Emergency Use Authorization (EUA) assay, with minor modification as defined by the FDA Performed on the Enventum 7 Flex. Performing Lab [facility] 07/30/2020 21:08 EST [facility] Swab 07/29/2020 13:0 0 EST 07/29/2020 15:40 EST Provider Outr Resulting Lab MICROBIOLOGY - GENERAL ORDERABLES Performing Organization Address City/[facility] Co de Phone Number [facility] [address] [place] [address] documented in this encounter Visit Diagnoses Not on filedocumented in this encounter Care Teams Vp Of Global Marketing Relationship Specialty Start Date End Date Jae Lerma MD [address] [place] [address] PCP - General 01/08/19 12/21/21 Sudarshan Lassiter MD [address] [place] [address] PCP - General Emergency Medicine 12/22/21 documented as of this encounter
--- OUTSIDE RECORDS SUMMARY | 2024-05-07 16:25 | XMS_ITS | Encounter Summary ---
Author Organization [facility] Address [address] [place] [address] Care Team Providers Care Seasonal Tax Preparer Name Role Phone Jae Lerma MD Primary Care Provider Sudarshan Lassiter MD Primary Care Provider [phone] Encounter Details Date Type Department Care Team (Late st Contact Info) Description 03/25/2020 Lab Requisition [facility] Pathology & Laboratory Medicine - [address] [id number] Outr Resulting Lab, Provider Social History Tobacco [...] Date/Time Associated Diagnosis Comments PSA TOTAL, DIAGNOSTIC Routine 03/24/2020 16:25 EDT documented in this encounter Results * (ABNORMAL) PSA TOTAL, DIAGNOSTIC (03/24/2020 16:25 EDT) PSA 7.8(H) 0.0 - 4.5 ng/mL 03/25/2020 18:23 EDT [facility] Blood VENOUS BLOOD / Unknown 03/24/2020 16:25 EDT 03/25/2020 17:03 EDT Narrative [facility] - 03/25/2020 18:23 EDT NOTE: Serum PSA concentration should not be interpreted as absolute evidence for the presence or absence of malignant disease. Assayed on Siemens [employer]VIA [employer] XPT using chemiluminescent technology.??Values obtained by using different assay methods cannot be used interchangeably. Provider Outr Resulting Lab CHEMISTRY & BLOOD GAS ORDERABLES [facility] [address] [place] [address] documented in this encounter Visit Diagnoses Not on filedocumented in this encounter Care Teams Seasonal Tax Preparer Relationship Specialty Start Date End Date Jae Lerma MD [address] [place] [address] PCP - General 01/08/19 12/21/21 Sudarshan Lassiter MD [address] [place] [address] PCP - General Emergency Medicine 12/22/21 documented as of this encounter
--- OUTSIDE RECORDS SUMMARY | 2024-05-07 16:25 | XMS_ITS | Encounter Summary ---
Author Organization [facility] Address [address] [place] [address] Care Team Providers Care Slope Runner Name Role Phone Jae Lerma MD Primary Care Provider [phone] Reason for Visit * Reason Comments Other inspire consult * Referral (Routine) - Closed Specialty Diagnoses / Procedures Referred By Sayda sousa Referred To Contact Otolaryngology Diagnoses Obstructive sleep apnea (adult) (pediatric) Betzaida Davis MD [address] [place] [phone] Torrie Tiwari MD [address] [place] [phone] Referral ID Status Reason Start Date Expiration Date Visits Re quested Visits Authorized [id number] Closed 1 1 Encounter Details Date Type Department Care Team (Late Contact Info) Description 01/08/2019 13:00 EDT Office Visit [facility] ENT- [address] [address] Torrie Tiwari MD [address] [place] [phone] CHRISSIE (obstructive sleep apnea) (Primary Dx) Social History Tobacco Use Types Packs/Day Years Used Date Smoking Tobacco: Never Smokeless Tobacco: Former Alcohol Use Standard Drinks/Week Comments Yes 0 (1 standard drink = 0.6 oz pur e alcohol) Sex and Gender Information Value Date Recorded Sex Assigned at Not on file Gender Identity Not on file Sexual Orientation Not on file documented as of this encounter Progress Notes * Torrie Tiwari MD, - 01/08/2019 1300 EDT Subjective: Patient ID: Dionicio Don is an 63 y.o. male. Chief Complaint Patient presents with ??? Other inspire consult HPI Betzaida Davis has requested that I see Dionicio Don in consultation regarding sleep apnea. He has had sleep apnea for many years with a PSG from 2008 showing an AHI of 72.4 and then anotherstudy 10/06 after nasal surgery which showed an AHI of 68. He has tried multiple masks and an oral appliance without relief. He is unable to keep his mask on for more then a couple of hours. He has another mask ordered to try. Past Medical History: Diagnosis Date ??? Sleep apnea Past Surgical History: Procedure Laterality Date ??? NASAL SINUS SURGERY Family History Problem Relation Age of Onset ??? Asthma Mother Social Social History Socioeconomic History ??? Marital status: Spouse name: Not on file ??? Number of children: Not on file ??? Years of education: Not on file ??? Highest education level: Not on file Occupational History ??? Not on file Social Needs ??? Financial resource strain: Not on file ??? Food insecurity: Worry: Not on file Inability: Not on file ??? Transportation needs: Medical: Not on file Non-medical: Not on file Tobacco Use ??? Smoking status: Never Smoker ??? Smokeless tobacco: Former User Substance and Sexual Activity ??? Alcohol use: Yes ??? Drug use: Not on file ??? Sexual activity: Not on file Lifestyle ??? Physical activity: Days per week: Not on file Minutes per session: Not on file ??? Stress: Not on file Relationships ??? Social connections: Talks on phone: Not on file Gets together: Not on file Attends restorationism service: Not on file Active member of club or organization: Not on file Attends meetings of clubs or organizations: Not on file Relationship status: Not on file ??? Intimate partner violence: Fear of current or ex partner: Not on file Emotionally abused: Not on file Physically abused: Not on file Forced sexual activity: Not on file Other Topics Concern ??? Not on file Social History Narrative ??? Not on file Outpatient Medications Marked as Taking for the 01/08/19 encounter (Office Visit) with Torrie Tiwari MD Medication Sig Dispense Refill ??? aspirin chewable 81 mg tablet Take 81 mg by mouth daily. ??? CANNABIDIOL, CBD, EXTRACT ORAL Take by mouth. ??? ibuprofen (MOTRIN) 200 mg tablet Take 200 mg by mouth every 6 hours. ??? montelukast (SINGULAIR) 10 mg tablet Take 10 mg by mouth daily. Allergies not on file Review of Systems Constitutional: Negative for chills, fever, malaise/fatigue and weight loss. HENT: Positive for congestion. Negative for ear pain, hearing loss and sore throat. Eyes: Negative for blurred vision, double vision and photophobia. Respiratory: Negative for cough, hemoptysis, shortness of breath and wheezing. Cardiovascular: Negative for chest pain, palpitations, claudication and leg swelling. Gastrointestinal: Negative for heartburn. Musculoskeletal: Positive for joint pain. Negative for myalgias. Skin: Negative for rash. Neurological: Negative for sensory change, focal weakness and headaches. Endo/Heme/Allergies: Negative for environmental allergies. Does not bruise/bleed easily. - See HPI Objective: There were no vitals taken for this visit. Physical Exam Department of Otolaryngology PHYSICAL EXAMINATION CONSTITUTIONAL: VITAL SIGNS: Not reviewed APPEARANCE: The patient appears alert, cooperative, and comfortable. ABILITY TO COMMUNICATE / VOICE: Normal HEAD AND FACE: INSPECTION: Normal without apparent scars, lesions, or masses. PALPATION: There are no masses or sinus tenderness. SALIVARY GLANDS: Submandibular and Parotid glands are normal bilaterally FACIAL STRENGTH: Intact and symmetrical bilaterally EXTERNAL EAR & NOSE: No external ear or nose deformity noted EYES: EYES: exam not performed EARS, NOSE, MOUTH AND THROAT: OTOSCOPY: Right external auditory canal: patent and non-inflamed Left external auditory canal: patent and non-inflamed Right tympanic membrane: intact without retraction, perforation or effusion Left tympanic membrane: intact without retraction, perforation or effusion WHISPER/TUNING FORK: Not assessed NOSE: normal turbinates and mucosa: septum in midline LIPS, TEETH & GUMS: normal for age ORAL CAVITY & OROPHARYNX: malanpati score 4, tonsil size: 2+ bilaterally HYPOPHARYNX & PHARYNGEAL ZAPATA: See flexible exam report LARYNX: See flexible exam report NASOPHARYNX: See flexible exam report NECK: GENERAL: Supple, no asymmetry or crepitus, trachea midline THYROID: Not examined LYMPHATIC: CERVICAL LYMPH NODES: No pathologic cervical lymphadenopathy noted RESPIRATORY: LUNGS: Not examined CARDIOVASCULAR: CARDIOVASCULAR: Not examined NEUROLOGIC: NEUROLOGIC: Normal mood and affect Endoscopy Procedure Note Pre-procedure Diagnosis: CHRISSIE Post-procedure Diagnosis: same Indications: Excessive gag reflex - preventing mirror examination Anesthesia: Cophenylcaine Endoscopy Type: Laryngoscopy using a pediatric flexible laryngoscope Procedure Details: With the patient sitting upright in the examining chair informed consent was obtained. The right nostril was topically anesthetized with spray. After waiting an appropriate period of time for anesthesia/ vasoconstriction to become effective (if this was applicable), the scope was passed into the right nostril and the nasopharynx, oropharynx, hypopharynx and larynx were examined. Condition: Patient tolerated procedure well and left the office in a stable condition. Complications: None Findings: Nasopharynx: Normal exam of choanae, eustachian tubes, and adenoids for age Oropharynx: Modified Botello's:3+ collapse of the palate 2+ collapse of the lateral pharyngeal wall 2+ collapse of the base of tongue Hypopharynx: Normal piriform sinuses noted, no pooling of secretions Larynx: Normal exam of supraglottis, true cords, with normal mucosa and normal vocal fold mobility Assessment: 63 yo M with CHRISSIE with a current BMI of 31.5, AHI on last PSG of 68. He is a candidate for DISE. Consent signed. Plan: As above Torrie Tiwari MD documented in this encounter Plan of Treatment Not on file documented as of this encounter Visit Diagnoses Diagnosis CHRISSIE (obstructive sleep apnea)- Primary Obstructive sleep apnea (adult) (pediatric) documented in this encounter Historical Medications * This list may reflect changes made after this encounter. Medication Sig Dispensed Refills Start Date End Date CANNABIDIOL, CBD, EXTRACT ORAL Take by mouth. ibuprofen (MOTRIN) 200 mg tablet Take 200 mg by mouth every 6 hours. montelukast (SINGULAIR) 10 mg tablet Take 10 mg by mouth daily. aspirin chewable 81 mg tablet Take 81 mg by mouth daily. added in this encounter Care Teams Slope Runner Relationship Specialty Start Date End Date Jae Lerma MD [address] [place] [address] PCP - General 01/08/19 12/21/21 documented as of this encounter
--- OUTSIDE RECORDS SUMMARY | 2024-05-07 16:25 | XMS_ITS | Encounter Summary ---
Author Organization [facility] Address [address] [place] [address] Care Team Providers Care Delimer Name Role Phone Jae Lerma MD Primary Care Provider [phone] Sudarshan Lassiter MD Primary Care Provider [phone] Encounter Details Date Type Department Care Team (Late st Contact Info) Description 10/08/2020 Lab Requisition [facility] Pathology & Laboratory Medicine - [address] [phone] Outr Resulting Lab, Provider Social History Tobacco [...] Associated Diagnosis Comments PSA TOTAL, DIAGNOSTIC Routine 10/08/2020 15:24 EDT documented in this encounter Results * (ABNORMAL) PSA TOTAL, DIAGNOSTIC (10/08/2020 15:24 EDT) PSA 9.3(H) 0.0 - 4.5 ng/mL 10/08/2020 21:44 EDT [facility] Blood VENOUS BLOOD / Unknown 10/08/2020 15:24 EDT 10/08/2020 20:37 EDT Narrative [facility] - 10/08/2020 21:44 EDT NOTE: Serum PSA concentration should not be interpreted as absolute evidence for the presence or absence of malignant disease. Assayed on Siemens ADVIA oomaaur XPT using chemiluminescent technology.??Values obtained by using different assay methods cannot be used interchangeably. Provider Outr Resulting Lab CHEMISTRY & BLOOD GAS ORDERABLES [facility] [address] [place] [address] documented in this encounter Visit Diagnoses Not on filedocumented in this encounter Care Teams Delimer Relationship Specialty Start Date End Date Jae Lerma MD [address] [place] [address] PCP - General 01/08/19 12/21/21 Sudarshan Lassiter MD [address] [place] [address] PCP - General Emergency Medicine 12/22/21 documented as of this encounter
--- OUTSIDE RECORDS SUMMARY | 2024-05-07 16:25 | XMS_ITS | Encounter Summary ---
Author Organization [facility] Address [address] [place] [address] Care Team Providers Care Renal Dialysis Rn Name Role Phone Jae Lerma MD Primary Care Provider [phone] Sudarshan Lassiter MD Primary Care Provider [phone] Encounter Details Date Type Department Care Team (Late st Contact Info) Description 07/22/2021 Lab Requisition [facility] Pathology & Laboratory Medicine - [address] [phone] Outr Resulting Lab, Provider Social History Tobacco [...] Procedure Name Priority Date/Time Associated Diagnosis Comments HIV 1/2 ANTIGEN AND ANTIBODY, 4TH GENERATION Routine 07/21/2021 14:00 EST documented in this encounter Results * HIV 1/2 ANTIGEN AND ANTIBODY, 4TH GENERATION (07/21/2021 14:00 EST) HIV 1 and 2 Antibody/p24 Antigen, 4th Generation Negative Negative 07/23/2021 11:[address] [facility] Comment:If acute HIV-1 infec tion is suspected in a high risk patient, submit plasma specimen for HIV-1 RNA quantitation test. Blood VENOUS BLOOD / Unknown 07/21/2021 14:00 EST 07/22/2021 16:[address] [facility] - 07/23/2021 11:51 EST Fourth Generation assay performed on the Siemens Centaur XPT. Provider Outr Resulting Lab IMMUNOLOGY A ND SEROLOGY ORDERABLES Performing Organization Address City/State/[facility] Co de Phone Number [facility] [address] [place] [address] documented in this encounter Visit Diagnoses Not on filedocumented in this encounter Care Teams Renal Dialysis Rn Relationship Specialty Start Date End Date Jae Lerma MD [address] [place] [address] PCP - General 01/08/19 12/21/21 Sudarshan Lassiter MD [address] [place] [address] PCP - General Emergency Medicine 12/22/21 documented as of this encounter
--- OUTSIDE RECORDS SUMMARY | 2024-05-07 16:25 | XMS_ITS | Encounter Summary ---
Author Organization [facility] Address [address] [place] [address] Care Team Providers Care Sap Payroll Consultant Name Role Phone Jae Lerma MD Primary Care Provider [phone] Sudarshan Lassiter MD Primary Care Provider [phone] Encounter Details Date Type Department Care Team (Late st Contact Info) Description 07/22/2021 Lab Requisition [facility] Pathology & Laboratory Medicine - [address] [phone] Outr Resulting Lab, Provider Social History Tobacco [...] Procedure Name Priority Date/Time Associated Diagnosis Comments HEPATITIS C AB W REFLEX TO HCV RNA BY PCR Routine 07/21/2021 14:00 EST documented in this encounter Results * HEPATITIS C AB W REFLEX TO HCV RNA BY PCR (07/21/2021 14:00 EST) Hep C Antibody Negative Negative 07/23/2021 11:26 EST [facility] Blood VENOUS BLOOD / Unknown 07/21/2021 14:00 EST 07/22/2021 16:46 EST Provider Outr Resulting Lab CHEMISTRY & BLOOD GAS ORDERABLES [facility] [address] [place] [address] documented in this encounter Visit Diagnoses Not on filedocumented in this encounter Care Teams Sap Payroll Consultant Relationship Specialty Start Date End Date Jae Lerma MD [address] [place] [address] PCP - General 01/08/19 12/21/21 Sudarshan Lassiter MD [address] [place] [address] PCP - General Emergency Medicine 12/22/21 documented as of this encounter
--- OUTSIDE RECORDS SUMMARY | 2024-05-07 16:25 | XMS_ITS | Encounter Summary ---
Author Organization [facility] Address [address] [place] [address] Care Team Providers Care Line Cook Name Role Phone Sudarshan Lassiter MD Primary Care Provider [phone] Encounter Details Date Type Department Care Team (Late st Contact Info) Description 06/22/2022 Lab Requisition [facility] Pathology & Laboratory Medicine - [address] [phone] Outr Resulting Lab, Provider Social History Tobacco [...] Associated Diagnosis Comments PSA TOTAL, DIAGNOSTIC Routine 06/21/2022 15:22 EST documented in this encounter Results * (ABNORMAL) PSA TOTAL, DIAGNOSTIC (06/21/2022 15:22 EST) PSA 12.3(H) <=4.5 ng/mL 06/22/2022 17:54 EST [facility] Blood VENOUS BLOOD / Unknown 06/21/2022 15:22 EST 06/22/2022 16:47 EST Narrative [facility] - 06/22/2022 17:54 EST NOTE: Serum PSA concentration should not be interpreted as absolute evidence for the presence or absence of malignant disease. Assayed on Siemens ADVIA ZolkCaur XPT using chemiluminescent technology.??Values obtained by using different assay methods cannot be used interchangeably. Provider Outr Resulting Lab CHEMISTRY & BLOOD GAS ORDERABLES [facility] [address] [place] [address] documented in this encounter Visit Diagnoses Not on filedocumented in this encounter Care Teams Line Cook Relationship Specialty Start Date End Date Sudarshan Lassiter MD [address] [facility] [address] [place] [address] PCP - General Emergency Medicine 12/22/21 documented as of this encounter
--- OUTSIDE RECORDS SUMMARY | 2024-05-07 16:25 | XMS_ITS | Clinical Summary ---
Author Organization [facility] Address [address] [place] [address] Care Team Providers Care Acupuncture Physician Name Role Phone Sudarshan Lassiter MD Primary Care Provider [phone] Medications Medication Sig Dispensed Refills Start Date End Date Status aspirin chewable 81 mg tablet Take 81 mg by mouth daily. Active montelukast (SINGULAIR) 10 mg tablet Take 10 mg by mouth daily. Active ibuprofen (MOTRIN) 200 mg tablet Take 200 mg by mouth every 6 hours. Active CANNABIDIOL, CBD, EXTRACT ORAL Take by mouth. Active Surgical History Surgery Date Site/Laterality Comments NASAL SINUS SURGERY Medical History Medical History Date Comments Sleep apnea Family History Medical History Relation Comments Asthma Mother Relation Status Comments Mother Social History Tobacco Use Types Packs/Day Years [...] on file Sexual Orientation Not on file Obstetrics History Plan of Treatment Health Maintenance Due Date Last Done Comments RSV Immunization ( o r 60+ Years) (1 - 1-dose 60+ series) 2017 Fall Risk Screening 2022 COVID-19 Vaccine (2022-24 season) 2023 Hepatitis C Screen Completed 07/21/2021 Procedures Procedure Name Priority Date/Time Associated Diagnosis Comments HEPATITIS C AB W REFLEX TO HCV RNA BY PCR Routine 07/21/2021 14:00 EST from Last 3 Months or Most Recently Relevant to Health Maintenance Results * HEPATITIS C AB W REFLEX TO HCV RNA BY PCR (07/21/2021 14:00 EST) Hep C Antibody Negative Negative 07/23/2021 11:26 EST [facility] Blood VENOUS BLOOD / Unknown 07/21/2021 14:00 EST 07/22/2021 16:46 EST Provider Outr Resulting Lab CHEMISTRY & BLOOD GAS ORDERABLES [facility] [address] [place] [address] from Last 3 Months or Most Recently Relevant to Health Maintenance Care Teams Acupuncture Physician Relationship Specialty Start Date End Date Sudarshan Lassiter MD [address] [facility] [address] [place], [place] [address] PCP - General Emergency Medicine 12/22/21
--- OUTSIDE RECORDS SUMMARY | 2024-05-07 16:25 | XMS_ITS | Referral Summary ---
Author Organization [facility] Address [address] [place] [address] Care Team Providers Care Foil Operator Name Role Phone Sudarshan Lassiter MD Primary Care Provider [phone] Medications Medication Sig Dispensed Refills Start Date End Date Status aspirin chewable 81 mg tablet Take 81 mg by mouth daily. Active montelukast (SINGULAIR) 10 mg tablet Take 10 mg by mouth daily. Active ibuprofen (MOTRIN) 200 mg tablet Take 200 mg by mouth every 6 hours. Active CANNABIDIOL, CBD, EXTRACT ORAL Take by mouth. Active Social History Tobacco Use Types Packs/Day Years [...] on file Sexual Orientation Not on file Plan of Treatment Not on file Procedures Procedure Name Priority Date/Time Associated Diagnosis Comments HEPATITIS C AB W REFLEX TO HCV RNA BY PCR Routine 07/21/2021 14:00 EST from Last 3 Months or Most Recently Relevant to Health Maintenance Results * HEPATITIS C AB W REFLEX TO HCV RNA BY PCR (07/21/2021 14:00 EST) Hep C Antibody Negative Negative 07/23/2021 11:26 EST [facility] Blood VENOUS BLOOD / Unknown 07/21/2021 14:00 EST 07/22/2021 16:46 EST Provider Outr Resulting Lab CHEMISTRY & BLOOD GAS ORDERABLES [facility] [address] [place] [address] from Last 3 Months or Most Recently Relevant to Health Maintenance Care Teams Foil Operator Relationship Specialty Start Date End Date Sudarshan Lassiter MD [address] [place] [address] [address] [place] [address] PCP - General Emergency Medicine 12/22/21
--- OUTSIDE RECORDS SUMMARY | 2024-05-07 16:25 | XMS_ITS | Encounter Summary ---
Author Organization [facility] Address [address] [place] [address] Care Team Providers Care Linotype Machinist Apprentice Name Role Phone Jae Lerma MD Primary Care Provider [phone] Sudarsahn Lassiter MD Primary Care Provider [phone] Encounter Details Date Type Department Care Team (Late st Contact Info) Description 04/22/2021 Lab Requisition [facility] Pathology & Laboratory Medicine - [address] [phone] Outr Resulting Lab, Provider Social History Tobacco [...] Associated Diagnosis Comments PSA TOTAL, DIAGNOSTIC Routine 04/21/2021 15:50 EDT documented in this encounter Results * (ABNORMAL) PSA TOTAL, DIAGNOSTIC (04/21/2021 15:50 EDT) PSA 9.6(H) 0.0 - 4.5 ng/mL 04/22/2021 17:52 EDT [facility] Blood VENOUS BLOOD / Unknown 04/21/2021 15:50 EDT 04/22/2021 16:14 EDT Narrative [facility] - 04/22/2021 17:52 EDT NOTE: Serum PSA concentration should not be interpreted as absolute evidence for the presence or absence of malignant disease. Assayed on Siemens ADVIA ScratchJraur XPT using chemiluminescent technology.??Values obtained by using different assay methods cannot be used interchangeably. Provider Outr Resulting Lab CHEMISTRY & BLOOD GAS ORDERABLES [facility] [address] [place] [address] documented in this encounter Visit Diagnoses Not on filedocumented in this encounter Care Teams Linotype Machinist Apprentice Relationship Specialty Start Date End Date Jae Lerma MD [address] [place] [address] PCP - General 01/08/19 12/21/21 Sudarshan Lassiter MD [address] [place] [address] PCP - General Emergency Medicine 12/22/21 documented as of this encounter
--- OUTSIDE RECORDS SUMMARY | 2024-05-07 16:25 | XMS_ITS | Encounter Summary ---
Author Organization [facility] Address [address] [place] [address] Care Team Providers Care Reimbursement Counselor Name Role Phone Sudarshan Lassiter MD Primary Care Provider [phone] Encounter Details Date Type Department Care Team (Late st Contact Info) Description 06/03/2022 Lab Requisition [facility] Pathology & Laboratory Medicine - [address] [phone] Outr Resulting Lab, Provider Social History Tobacco [...] Associated Diagnosis Comments PSA TOTAL, DIAGNOSTIC Routine 06/02/2022 8:45 EST documented in this encounter Results * (ABNORMAL) PSA TOTAL, DIAGNOSTIC (06/02/2022 8:45 EST) PSA 10.4(H) <=4.5 ng/mL 06/03/2022 19:47 EST [facility] Blood VENOUS BLOOD / Unknown 06/02/2022 8:45 EST 06/03/2022 17:25 EST Narrative [facility] - 06/03/2022 19:47 EST NOTE: Serum PSA concentration should not be interpreted as absolute evidence for the presence or absence of malignant disease. Assayed on Siemens ADVIA Flowgramaur XPT using chemiluminescent technology.??Values obtained by using different assay methods cannot be used interchangeably. Provider Outr Resulting Lab CHEMISTRY & BLOOD GAS ORDERABLES [facility] [address] [place] [address] documented in this encounter Visit Diagnoses Not on filedocumented in this encounter Care Teams Reimbursement Counselor Relationship Specialty Start Date End Date Sudarshan Lassiter MD [address] [facility] [address] [place] [address] PCP - General Emergency Medicine 12/22/21 documented as of this encounter
--- OUTSIDE RECORDS SUMMARY | 2024-05-07 16:25 | XMS_ITS | Encounter Summary ---
Author Organization [facility] Address [address] [place] [address] Care Team Providers Care Bleacher Groundwood Pulp Name Role Phone Sudarshan Lassiter MD Primary Care Provider [phone] Encounter Details Date Type Department Care Team (Late st Contact Info) Description 02/02/2022 Lab Requisition [facility] Pathology & Laboratory Medicine - [address] [address] Tracie Holloway MD [address] [place] [address] [address] [place], [place] [id number] Encounter for other general examination Social History Tobacco Use Types Packs/Day Years [...] Procedure Name Priority Date/Time Associated Diagnosis Comments SURGICAL PATHOLOGY Today 02/02/2022 11 :13 EDT Encounter for other general examination documented in this encounter Results * SURGICAL PATHOLOGY (02/02/2022 11:13 EDT) Note to Patient The following pathology results have been interpreted by your pathologist and may be available to you before your health provider has had the opportunity to review them. Please allow time for your provider to receive these results and explore management options, if applicable. 02/07/2022 9:54 T [facility] Final Diagnosis A. RECTUM, POLYPS, BIOPSY: - Hyperplastic polyps. - Deeper sections x3 examined. 02/07/2022 9:54 T [facility] Attestation There was significant resident/fellow involvement in the diagnostic evaluation of this case. By the signature below, the attending physician certifies that they have personally conducted a gross and/or microscopic examination of the described specimens and rendered or confirmed the above diagnosis. 02/07/2022 9:54 T [facility] at 0954 Clinical History Colon cancer screening 02/07/2022 9:54 [facility] Gross Description A. Received in formalin labelled with proper patient identification (initials A, K) and 1. Rectal polyp x2 are two ardon tissues (0.4 x 0.3 x 0.1 cm and 0.2 x 0.2 x 0.1 cm). Entirely submitted in A1. ANJUM KEE 02/03/2022 8:56 02/07/2022 9:54 [facility] Resident/Jesus w: Alena Key MD 02/07/2022 9:54 [facility] Performing Lab [facility] 02/07/2022 9:54 T [facility] Scanned Images 02/07/2022 9:54 [facility] Tissue SPECIMEN FROM RECTUM / Unknown 02/02/2022 11:13 EDT 02/02/2022 16:49 EDT Tracie Holloway MD PATHOLOGY ORDERA BLES [facility] [address] [place] [address] documented in this encounter Visit Diagnoses Diagnosis Encounter for other general examination documented in this encounter Care Teams Bleacher Groundwood Pulp Relationship Specialty Start Date End Date Sudarshan Lassiter MD 26 [facility] [address] [place] [address] PCP - General Emergency Medicine 12/22/21 documented as of this encounter
--- OUTSIDE RECORDS SUMMARY | 2024-05-07 16:25 | XMS_ITS | Encounter Summary ---
Author Organization [facility] Address [address] [place] [address] Care Team Providers Care Central Office Inspector Name Role Phone Jae Lerma MD Primary Care Provider [phone] Reason for Visit * Reason Onset Date Comments Returning Call 03/12/2019 Encounter Details Date Type Department Care Team (Late st Contact Info) Description 03/12/2019 Telephone [facility]- [address] [phone] Torrie Tiwari MD [address] [facility], [address] [place] [address] Returning Call Social History Tobacco Use Types Packs/Day Years [...] encounter Miscellaneous Notes * Telephone Encounter - Audrye Benitez RN - 03/12/2019 7028 EDT Spoke with patient. He received a letter in mail confirming DISE procedure. Was under the impression he was unable to have procedure until sleep study was performed. He is scheduled to see his new sleep provider on 03/18. He will request a sleep study then in order to move forward with the INSPIRE device. Would like to cancel his DISE procedure for now. Will call after appointment on 03/18. * Telephone Encounter - Viktor Pascual - 03/12/2019 1411 EDT Patient set up new sleep study and is now confused as he thought the surgery was going to be canceled. When does he need the sleep study? Should he keep the surgery scheduled? He has several questions and is very confused by it all. Please call and advise today if possible at [phone]. Thank you documented in this encounter Plan of Treatment Not on file documented as of this encounter Visit Diagnoses Not on filedocumented in this encounter Care Teams Central Office Inspector Relationship Specialty Start Date End Date Jae Lerma MD [address] [place] [address] PCP - General 01/08/19 12/21/21 documented as of this encounter
--- OUTSIDE RECORDS SUMMARY | 2024-05-07 16:25 | XMS_ITS | Encounter Summary ---
Author Organization [facility] Address [address] [place] [address] Care Team Providers Care Ecologist Name Role Phone Jae Lerma MD Primary Care Provider Reason for Visit * Reason Onset Date Comments Follow-up 04/17/2019 Encounter Details Date Type Department Care Team (Late st Contact Info) Description 04/17/2019 Telephone [facility] Main [address] [phone] Audrey Saha RN Follow-up Social History Tobacco [...] Telephone Encounter - Audrey Benitez RN - 04/17/2019 0914 EDT Spoke with patient, PSG scheduled for 04/21/19. Will request results be faxed. documented in this encounter Plan of Treatment Not on file documented as of this encounter Visit Diagnoses Not on filedocumented in this encounter Care Teams Ecologist Relationship Specialty Start Date End Date Jae Lerma MD [address] [place] [address] PCP - General 01/08/19 12/21/21 documented as of this encounter
--- OUTSIDE RECORDS SUMMARY | 2024-05-07 16:25 | XMS_ITS | Encounter Summary ---
Author Organization [facility] Address [address] [place] [address] Care Team Providers Care Hook Up Driver Name Role Phone Jae Lerma MD Primary Care Provider Sudarshan Lassiter MD Primary Care Provider [phone] Encounter Details Date Type Department Care Team (Late st Contact Info) Description 10/20/2021 Lab Requisition [facility] Pathology & Laboratory Medicine - [address] [phone] Outr Resulting Lab, Provider Social History Tobacco [...] Associated Diagnosis Comments PSA TOTAL, DIAGNOSTIC Routine 10/20/2021 14:44 EDT documented in this encounter Results * (ABNORMAL) PSA TOTAL, DIAGNOSTIC (10/20/2021 14:44 EDT) PSA 11.8(H) 0.0 - 4.5 ng/mL 10/20/2021 22:[address] [facility] Blood VENOUS BLOOD / Unknown 10/20/2021 14:44 EDT 10/20/2021 21:23 EDT [address] [facility] - 10/20/2021 22:40 EDT NOTE: Serum PSA concentration should not be interpreted as absolute evidence for the presence or absence of malignant disease. Assayed on Siemens ADVIA Siva Therapeuticsaur XPT using chemiluminescent technology.??Values obtained by using different assay methods cannot be used interchangeably. Provider Outr Resulting Lab CHEMISTRY & BLOOD GAS ORDERABLES [facility] [address] [place] [address] documented in this encounter Visit Diagnoses Not on filedocumented in this encounter Care Teams Hook Up Driver Relationship Specialty Start Date End Date Jae Lerma MD [address] [place] [address] PCP - General 01/08/19 12/21/21 Sudarshan Lassiter MD [address] [place] [address] PCP - General Emergency Medicine 12/22/21 documented as of this encounter
--- OUTSIDE RECORDS SUMMARY | 2024-05-07 16:25 | XMS_ITS | Encounter Summary ---
Author Organization [facility] Address [address] [place] [address] Care Team Providers Care Transformation Coach Name Role Phone Sudarshan Lassiter MD Primary Care Provider [phone] Encounter Details Date Type Department Care Team (Late st Contact Info) Description 12/21/2022 Lab Requisition [facility] Pathology & Laboratory Medicine - [address] [phone] Outr Resulting Lab, Provider Social History Tobacco [...] Associated Diagnosis Comments PSA TOTAL, DIAGNOSTIC Routine 12/21/2022 13:55 EDT documented in this encounter Results * (ABNORMAL) PSA TOTAL, DIAGNOSTIC (12/21/2022 13:55 EDT) PSA 10.4(H) <=4.5 ng/mL 12/21/2022 22:59 EDT [facility] Blood VENOUS BLOOD / Unknown 12/21/2022 13:55 EDT 12/21/2022 21:46 EDT Narrative [facility] - 12/21/2022 22:59 EDT NOTE: Serum PSA concentration should not be interpreted as absolute evidence for the presence or absence of malignant disease. Assayed on Siemens ADVIA V3 Systemsaur XPT using chemiluminescent technology.??Values obtained by using different assay methods cannot be used interchangeably. Provider Outr Resulting Lab CHEMISTRY & BLOOD GAS ORDERABLES [facility] [address] [place] [address] documented in this encounter Visit Diagnoses Not on filedocumented in this encounter Care Teams Transformation Coach Relationship Specialty Start Date End Date Sudarshan Lassiter MD [address] [facility] [address] [place] [address] PCP - General Emergency Medicine 12/22/21 documented as of this encounter
--- OUTSIDE RECORDS SUMMARY | 2024-05-07 16:26 | XMS_ITS | Encounter Summary ---
Author Organization [facility] Address [address] [place] [address] Care Team Providers Care Photo Intern Name Role Phone Stacey Xiong ZAFAR Primary Care Provider [phone] Encounter Details Date Type Department Care Team (Late st Contact Info) Description 05/18/2015 Results Only [facility] [phone] Nigel Silver MD [address] [place] [phone] Social History Tobacco Use Types Packs/Day Years Used Date Smoking Tobacco: Never Assessed Sex and Gender Information Value Date Recorded Sex Assigned at Not on file Gender Identity Not on file Sexual Orientation Not on file documented as of this encounter Plan of Treatment Not on file documented as of this encounter Procedures Procedure Name Priority Date/Time Associated Diagnosis Comments SURGICAL PATHOLOGY Routine 05/18/2015 20 :14 EDT documented in this encounter Results * SURGICAL PATHOLOGY (05/18/2015 20:14 EDT) Pathology Report: SURGICAL PATHOLOGY REPORT Reports generated via electronic interface contain original data; however they are lacking the format of the original report. Caution should be taken when reading/interpret ing unformatted reports. Name: ? PASCUAL DON ? Accession #: ? [id number] ? : ? 1955 (Age: 60) ??M ? Collect Date: ? 05/18/2015 ? Location: ? [facility] ? Receive Date: ? 05/20/2015 ? Provider: NIGEL SILVER MD Copy to: MACI REYNOSO MD ? Final Pathologic Diagnosis: A. TURBINATE, NASAL BONE AND CARTILAGE, RIGHT, EXCISION: - ??Fragments of hyaline cartilage and respiratory mucosa with mild reactive changes. B. TURBINATE, LEFT, EXCISION: - ??Hyaline cartilage and lamellar bone with evidence of remodeling. Document reviewed and electronically signed by: RAJAN ENG MD Report ??Date: 05/25/2015 15:29 By the signature above, the attending physician certifies that he/she has personally conducted a gross and/or microscopic examination of the described specimens and rendered or confirmed the above diagnosis. Specimen(s) Received: A. ??Right turbinate, nasal bone, and cartilage B. ??Left turbinate Clinical History: DNS; inferior turb hypertrophy; clinical diagnosis code: J31.0 Gross Description: A. ?Received in formalin labelled with proper patient identification (initials A, K) and right turbinate, nasal bone, and cartilage are two bess-white portions of cartilaginous material and bone (2.5 x 1.6 x 0.3 cm in aggregate). Also received are multiple pink-ardon portions of mucosa (2.0 x 0.5 x 0.5 cm in aggregate). No definitive nodules are present. The cartilaginous material is submitted as A1 and the remaining specimen is submitted as A2. B. ?Received in formalin labelled with proper patient identification (initials A, K) and left turbinate are two bess-white portions of cartilage and bone measuring 1.0 x 1.0 x 0.3 cm in aggregate. The specimen is entirely submitted as B1 following decalcification. Katrin Banegas 05/21/2015 9:42 AM End of Report [facility] 05/18/2015 20:1 4 EDT 05/20/2015 20:14 EDT Nigel Silver MD PATHOLOGY ORDERABLES [facility] [address] [place] [address] documented in this encounter Visit Diagnoses Not on filedocumented in this encounter Care Teams Photo Intern Relationship Specialty Start Date End Date Stacey Xiong FNP [address] [place], [place] [id number] PCP - General 03/02/10 05/21/15 documented as of this encounter
--- OUTSIDE RECORDS SUMMARY | 2024-05-07 16:26 | XMS_ITS | Encounter Summary ---
Author Organization [facility] Address [address] [place] [address] Care Team Providers Care Heating And Air Conditioning Mechanic Name Role Phone Stacey Xiong ZAFAR Primary Care Provider [phone] Encounter Details Date Type Department Care Team (Late st Contact Info) Description 12/21/2005 Results Only [facility] [address] [place] [address] Anish Leal, DO [address] [facility] MELVA WARNER [address] [place] [phone] Social History Tobacco Use Types Packs/Day Years Used Date Smoking Tobacco: Never Assessed Sex and Gender Information Value Date Recorded Sex Assigned at Not on file Gender Identity Not on file Sexual Orientation Not on file documented as of this encounter Plan of Treatment Not on file documented as of this encounter Procedures Procedure Name Priority Date/Time Associated Diagnosis Comments SURGICAL PATHOLOGY Routine 12/21/2005 0:00 EDT documented in this encounter Results * SURGICAL PATHOLOGY (12/21/2005 0:00 EDT) Pathology Report: SURGICAL PATHOLOGY REPORT Reports generated via electronic interface contain original data; however they are lacking the format of the original report. Caution should be taken when reading/interpreting unformatted reports. Name: ? PASCUAL DON ? Accession #: ? [id number] ? : ? 1955 (Age: 50) ??M ? Collect Date: ? 12/21/2005 ? Location: ? [facility] ? Receive Date: ? 12/22/2005 ? Provider: ANISH LEAL DO Copy to: DENISE ROMERO PA ? Final Pathologic Diagnosis: ? Soft tissue, back, excision: - Mature adipose tissue with foci of fat necrosis, consistent with lipoma. ??See comment. Comment: ? This case was reviewed at the intradepartmental consultation conference. Dr. Sampson Bullard has reviewed this case in consultation and concurs with the diagnosis. ??(Dr. Contreras)/[facility] Document reviewed and electronically signed by: BEVERLY CONTRERAS MD Report ??Date: 12/26/2005 15:36 By the signature above, the attending physician certifies that he/she has personally conducted a gross and/or microscopic examination of the described specimens and rendered or confirmed the above diagnosis. Specimen(s) Received: ? Lipoma back Clinical History: ? Lipoma Gross Description: ? Received in formalin labelled [place] and lipoma back is a 3.7 x 2.8 x 1.1 cm aggregate of ardon lobulated soft tissue. ??No areas of hemorrhage are identified. ??Approximately 50% of the specimen in submitted as (A1) and (A2). (Isaiah Hooker)/[facility] End of Report [facility] 12/21/2005 12/22/2005 15: 33 EDT Anish Leal DO PATHOLOGY ORDER SAROJ [facility] [address] [place] [address] documented in this encounter Visit Diagnoses Not on filedocumented in this encounter Care Teams Heating And Air Conditioning Mechanic Relationship Specialty Start Date End Date Stacey Xiong FNP [address] [place], [place] [address] PCP - General 03/02/10 05/21/15 documented as of this encounter
--- OUTSIDE RECORDS SUMMARY | 2024-05-07 16:26 | XMS_ITS | Encounter Summary ---
Author Organization [facility] Address [address] [place] [address] Care Team Providers Care Gem Expert Name Role Phone Unavailable Primary Care Provider Unavailabl e Encounter Details Date Type Department Care Team (Late st Contact Info) Description 02/26/2010 Results Only [facility] [phone] Hannah Majano MD [address] [address] Social History Tobacco Use Types Packs/Day Years Used Date Smoking Tobacco: Never Assessed Sex and Gender Information Value Date Recorded Sex Assigned at Not on file Gender Identity Not on file Sexual Orientation Not on file documented as of this encounter Plan of Treatment Not on file documented as of this encounter Procedures Procedure Name Priority Date/Time Associated Diagnosis Comments SURGICAL PATHOLOGY Routine 02/26/2010 0:00 EDT documented in this encounter Results * SURGICAL PATHOLOGY (02/26/2010 0:00 EDT) Pathology Report: SURGICAL PATHOLOGY REPORT ? Reports generated via electronic interface contain original data; ? however they are lacking the format of the original report. ? Caution should be taken when reading/interpreti ng unformatted reports. ? Name: ? AREMBURG, PASCUAL C ? Accession #: ? [id number] ? : ? 1955 (Age: 54) ??M ? Collect Date: ? 02/26/2010 ? Location: ? [facility] ? Receive Date: ? 02/26/2010 ? Provider: HANNAH NISBET MD ? Copy to: MACI REYNOSO MD ? Final Pathologic Diagnosis: ? A. ?Prostate, right apex, needle core biopsies: ? 1. ?Benign prostatic glands and stroma. ? B. ?Prostate, right mid, needle core biopsies: ? 1. ?Benign prostatic glands and stroma with extensive atrophy, basal ? cell hyperplasia, and focal squamous metaplasia. ? C. ?Prostate, right base, needle core biopsies: ? 1. ?Benign prostatic glands and stroma with basal cell hypertrophy and ?? cystic atrophy. ? D. ?Prostate, left apex, needle core biopsies: ? 1. ?Benign prostatic glands and stroma with atrophy and chronic ? inflammation. ? E. ?Prostate, left mid, needle core biopsies: ? 1. ?Benign prostatic glands and stroma with chronic inflammation. ? F. ?Prostate, left base, needle core biopsy: ? 1. ?Benign prostatic glands and stroma with focal atrophy. ? Document reviewed and electronically signed by: ? UDAY CELESTE MD ? Report ??Date: 03/02/2010 14:47 ? By the signature above, the attending physician certifies that he/she has ? personally conducted a gross and/or microscopic examination of the described ? specimens and rendered or confirmed the above diagnosis. ? Specimen(s) Received: ? A. ?R apex (2) ? B. ? R mid (2) ? C. ? R base (2) ? D. ? L apex (2) ? E. ? L mid (2) ? F. ? L base (2) ? Clinical History: ? Elevated PSA ? Gross Description: ? Received in formalin labelled [place], Pascual C and R apex (2) are two cylinders of white-ardon soft tissue measuring 0.1 cm in diameter and 1.0 and 1.1 cm in length, submitted entirely as (A). ? Received in formalin labelled Pascual Don and R mid (2) are two ? cylinders of white-ardon soft tissue measuring 0.1 cm in diameter and 1.5 and 2.0 cm in length, submitted entirely as (B). ? Received in formalin labelled Pascual Don and R base (2) are two ? cylinders of white-ardon soft tissue measuring 0.1 cm in diameter and 1.8 x 2.0 cm in length, submitted entirely as (C). ? Received in formalin labelled Pascual Don C and L apex (2) are two ? cylinders of ardon-white soft tissue measuring 0.1 cm in diameter and 0.6 to 1.5 ?? cm in length, submitted entirely as (D). ? Received in formalin labelled [place], Pascual C and L mid (2) are two ? cylinders of white-ardon soft tissue measuring 0.1 cm in diameter and 1.3 and 1.5 cm in length, submitted entirely as (E). ? Received in formalin labelled [place], Pascual C and L base (2) are two ? cylinders of white-ardon soft tissue measuring 0.1 cm in diameter and each ? measuring 2.0 cm in length, submitted entirely as (F). (Dr. Melchor)/[facility] ? End of Report ? [facility] 02/26/2010 02/26/2010 8:5 4 EDT Hannah Majano MD PATHOLOGY ORDERABLES [facility] [address] [place] [address] documented in this encounter Visit Diagnoses Not on filedocumented in this encounter
--- OUTSIDE RECORDS SUMMARY | 2024-05-07 16:26 | XMS_ITS | Encounter Summary ---
Author Organization [facility] Address [address] [place] [address] Care Team Providers Care Java Application Developer Name Role Phone Stacey Xiong Primary Care Provider [phone] Encounter Details Date Type Department Care Team (Latest Contact Info) Description 05/18/2015 15:22 EDT - 05/18/2015 23:59 EDT Hospital Encounter [address] [address] Unknown, Provider, Discharge Disposition: Home or Self Care Social History Tobacco Use Types Packs/Day Years Used Date Smoking Tobacco: Never Assessed Sex and Gender Information Value Date Recorded Sex Assigned at Not on file Gender Identity Not on file Sexual Orientation Not on file documented as of this encounter Discharge Disposition Disposition Code Departure Means Destination Home or Self [facility] documented in this encounter Plan of Treatment Not on file documented as of this encounter Visit Diagnoses Not on filedocumented in this encounter Care Teams Java Application Developer Relationship Specialty Start Date End Date Stacey Xiong FNP [address] [place] [address] PCP - General 03/02/10 05/21/15 documented as of this encounter
--- OUTSIDE RECORDS SUMMARY | 2024-05-07 16:26 | XMS_ITS | Encounter Summary ---
Author Organization [facility] Address [address] [place] [address] Care Team Providers Care Heel Attacher Name Role Phone Jae Lerma MD Primary Care Provider [phone] Encounter Details Date Type Department Care Team (Late st Contact Info) Description 08/28/2018 Results Only [facility] [phone] Jonas Cleveland MD [address] [place] [address] [place] [address] Social History Tobacco Use Types Packs/Day Years Used Date Smoking Tobacco: Never Assessed Sex and Gender Information Value Date Recorded Sex Assigned at Not on file Gender Identity Not on file Sexual Orientation Not on file documented as of this encounter Plan of Treatment Not on file documented as of this encounter Procedures Procedure Name Priority Date/Time Associated Diagnosis Comments SURGICAL PATHOLOGY Routine 08/28/2018 17 :36 EST documented in this encounter Results * SURGICAL PATHOLOGY (08/28/2018 17:36 EST) Pathology Report: SURGICAL PATHOLOGY REPORT Reports generated via electronic interface contain original data; however they are lacking the format of the original report. Caution should be taken when reading/interpretin g unformatted reports. Name: ? PASCUAL DON ? Accession #: ? [id number] ? : ? 1955 (Age: 63) ??M ? Collect Date: ? 08/28/2018 ? Location: ? [facility] ? Receive Date: ? 08/28/2018 ? Provider: JONAS CLEVELAND MD Copy to: JAE LERMA MD ? Final Pathologic Diagnosis: A. PROSTATE, RIGHT BASE LATERAL, BIOPSY (1): - Prostatic tissue (9.0 mm) with focal atrophy. B. PROSTATE, RIGHT BASE MEDIAL, BIOPSY (1): - Prostatic tissue (13.4 mm) with focal atrophy. C. PROSTATE, RIGHT MID LATERAL, BIOPSY (1): - Prostatic tissue (13.3 mm) with atrophy. D. PROSTATE, RIGHT MID MEDIAL, BIOPSY (1): - Prostatic tissue (20.7 mm) with focal atrophy and focal basal cell hyperplasia. E. PROSTATE, RIGHT APEX LATERAL, BIOPSY (1): - Prostatic tissue (12.1 mm) with atrophy. - Fibromuscular tissue (4.0 mm) with no specific histopathologic features. F. PROSTATE, RIGHT APEX MEDIAL, BIOPSY (2): - Prostatic tissue (7.9 mm) with atrophy. - Prostatic tissue (5.8 mm) with no specific histopathologic features. G. PROSTATE, LEFT BASE LATERAL, BIOPSY (1): - Prostatic tissue (11.0 mm) with focal atrophy. H. PROSTATE, LEFT BASE MEDIAL, BIOPSY (1): - Prostatic tissue (11.0 mm) with focal atrophy and focal chronic inflammation. I. PROSTATE, LEFT MID LATERAL, BIOPSY (1): - Prostatic tissue (16.5 mm) with focal atrophy. - Colorectal mucosa with no specific histopathologic features. J. PROSTATE, LEFT MID MEDIAL, BIOPSY (1): - Prostatic tissue (15.3 mm) with atrophy and focal basal cell hyperplasia. K. PROSTATE, LEFT APEX LATERAL, BIOPSY (1): - Prostatic tissue (12.4 mm) with focal atrophy and focal acute and chronic inflammation. L. PROSTATE, LEFT APEX MEDIAL, BIOPSY (1): - Prostatic tissue (18.3 mm) with focal atrophy. Comment: Immunohistochemical study, with appropriate controls, was performed on (E: right apex lateral) to evaluate atrophic glands, and the immunoreactivity pattern supports the diagnosis. IMMUNOHISTOCHEMISTR Y: ANTIBODY(CLONE)(BLO CK):RESULT [id number] (K-9) (34BE12, Wisdom) (E1): Patchy positive P63 (4A4, Wisdom) (E1): Patchy positive P504S (rabbit monoclonal (clone [id number]), [employer]) (E1): Negative NOTE: ??One or more of the reagents used in immunoperoxidase testing in this case may not have been cleared or approved by the U.S. Food and Drug Administration (FDA). ??The FDA has determined that such clearance or approval is not necessary. ??These tests are used for clinical purposes. ??They should not be regarded as investigational or for research. ??These reagents' performance characteristics have been determined by the . ??The positive and negative controls worked appropriately. ??If immunoperoxidase staining has been performed on alcohol fixed cytology specimens, which has not been fully validated, the assays should be interpreted with caution and correlated with clinical data. ??This laboratory is certified under the Clinical Laboratory Improvement Amendments of 1988 (CLIA-88) as qualified to perform high complexity clinical laboratory testing. Document reviewed and electronically signed by: Kat Dunham MD Report ??Date: 08/31/2018 07:36 By the signature above, the attending physician certifies that he/she has personally conducted a gross and/or microscopic examination of the described specimens and rendered or confirmed the above diagnosis. Specimen(s) Received: A. ??Rt base lateral B. ??Rt base medial C. ??Rt mid lateral D. ??Rt mid medial F. ??Rt apex lateral G. ??Rt apex medial H. ??Lt base lateral I. ??Lt base medial J. ??Lt mid lateral K. ??Lt mid medial L. ??Lt apex lateral M. ??Lt apex medial Clinical History: PSA 9.1 ng/mL, prior biopsy in 2009 showed no malignancy Gross Description: A. ?Received in formalin labelled with proper patient identification (initials A, K) and #1. RT base lateral is a ardon-white tissue core (1.0 cm in length x 0.1 cm in diameter). Wrapped and submitted in toto in A1. B. ?Received in formalin labelled with proper patient identification (initials A, K) and #2. RT base medial is a ardon-white tissue core (1.5 cm in length x 0.1 cm in diameter). Wrapped and submitted in toto in B1. C. ?Received in formalin labelled with proper patient identification (initials A, K) and #3. RT mid lateral is a ardon-white tissue core (1.5 cm in length x 0.1 cm in diameter). Wrapped and submitted in toto in C1. D. ?Received in formalin labelled with proper patient identification (initials A, K) and #4. RT mid medial is a ardon-white tissue core (2.3 cm in length x 0.1 cm in diameter). Wrapped and submitted in toto in D1. E. ?Received in formalin labelled with proper patient identification (initials A, K) and #5. RT apex lateral is a ardon-white tissue core (1.6 cm in length x 0.1 cm in diameter). Wrapped and submitted in toto in E1. F. ?Received in formalin labelled with proper patient identification (initials A, K) and #6. RT apex medial is a ardon-white tissue core (1.4 cm in length x 0.1 cm in diameter). Wrapped and submitted in toto in F1. G. ?Received in formalin labelled with proper patient identification (initials A, K) and #7. LT base lateral is a ardon-white tissue core (1.3 cm in length x 0.1 cm in diameter). Wrapped and submitted in toto in G1. H. ?Received in formalin labelled with proper patient identification (initials A, K) and #8. LT base medial is a ardon-white tissue core (1.4 cm in length x 0.1 cm in diameter). Wrapped and submitted in toto in H1. I. ?Received in formalin labelled with proper patient identification (initials A, K) and #9. LT mid lateral is a ardon-white tissue core (2.0 cm in length x 0.1 cm in diameter). Wrapped and submitted in toto in I1. J. ?Received in formalin labelled with proper patient identification (initials A, K) and #10. Left mid medial is a ardon-white tissue core (1.5 cm in length x 0.1 cm in diameter). Wrapped and submitted in toto in J1. K. ?Received in formalin labelled with proper patient identification (initials A, K) and #11. LT apex lateral is a ardon-white tissue core (1.4 cm in length x 0.1 cm in diameter). Wrapped and submitted in toto in K1. L. ?Received in formalin labelled with proper patient identification (initials A, K) and #12. LT apex medial is a ardon-white tissue core (1.4 cm in length x 0.1 cm in diameter). Wrapped and submitted in toto in L1. SABAS Mata (ASCP) 08/29/2018 10:25 AM End of Report [facility] 08/28/2018 17:3 6 EST 08/28/2018 17:36 EST Jonas Cleveland MD PATHOLOGY ORDERAB LES [facility] [address] [place] [address] documented in this encounter Visit Diagnoses Not on filedocumented in this encounter Care Teams Heel Attacher Relationship Specialty Start Date End Date Jae Lerma MD [address] [place], [place] [id number] PCP - General 05/22/15 01/06/19 documented as of this encounter
--- OUTSIDE RECORDS SUMMARY | 2024-05-07 16:26 | XMS_ITS | Encounter Summary ---
Author Organization [facility] Address [address] [place] [address] Care Team Providers Care Retail Advertising Executive Name Role Phone Jae Lerma MD Primary Care Provider [phone] Encounter Details Date Type Department Care Team (Latest Contact Info) Description 08/28/2018 19:32 EST - 08/28/2018 23:59 EST Hospital Encounter [address] [address] Unknown, Provider, Discharge Disposition: Home or Self Care Social History Tobacco Use Types Packs/Day Years Used Date Smoking Tobacco: Never Assessed Sex and Gender Information Value Date Recorded Sex Assigned at Not on file Gender Identity Not on file Sexual Orientation Not on file documented as of this encounter Discharge Disposition Disposition Code Departure Means Destination Home or Self Senior Living documented in this encounter Plan of Treatment Not on file documented as of this encounter Visit Diagnoses Not on filedocumented in this encounter Care Teams Retail Advertising Executive Relationship Specialty Start Date End Date Jae Lerma MD [address] [place] [address] PCP - General 05/22/15 01/06/19 documented as of this encounter
[2024-05-07 21:50] LABS: ALT 45 U/L (16-63); AST 26 U/L (15-37); Albumin 3.9 g/dL (3.4-5.0); Alkaline Phosphatase 97 U/L (46-116); Anion Gap 10.6 mmol/L (3-11); BUN 21 mg/dL (7-18); Bilirubin, Total 0.88 mg/dL (0.2-1.0); CO2 24.4 mmol/L (21.0-32.0); CREATININE 1.2 mg/dL (0.70-1.30); Calcium 9.3 mg/dL (8.5-10.1); Chloride 110 mmol/L (98-107); Estimated GFR 66.28 (mL/min/1.73m2); Glucose 100 mg/dL (74-106); Potassium 4.5 mmol/L (3.5-5.1); Sodium 145 mmol/L (136-145); Total Protein 7.2 g/dL (6.4-8.2)
[2024-05-08 18:38] LABS: PSA, Screening 10.4 ng/mL (<=4.5)
== END 2024-05-07 16:23 | disposition home or self-care (01) ==
LOC: NCHCN 16:22
PROVIDERS: PCP Family Medicine; Visit Provider Family Medicine
DX: Z00.00 Encounter for general adult medical examination without abnormal findings (principal); R97.20 Elevated prostate specific antigen [PSA]
CPT/HCPCS: 80053; 84153

== ENCOUNTER → 2025-05-08 09:51 | Outpatient (BNVA) | payer MEDICARE, BC, SELFPAY | PROVIDERS: PCP Family Medicine; Referring Provider Family Medicine; Visit Provider Nurse Practitioner Gerontology | DX: N40.1 Benign prostatic hyperplasia with lower urinary tract symptoms (principal); R35.0 Frequency of micturition; N13.8 Other obstructive and reflux uropathy; R97.20 Elevated prostate specific antigen [PSA]; R39.9 Unspecified symptoms and signs involving the genitourinary system | CPT/HCPCS: 99213; 51798 ==

== ENCOUNTER 2025-05-08 10:32 | Outpatient (CLI) | payer MEDICARE, BC, SELFPAY ==
[2025-05-08 18:31] LABS: PSA, Diagnostic 12.0 ng/mL (<=4.5)
== END 2025-05-08 10:33 | disposition home or self-care (01) ==
LOC: LBO 10:32
PROVIDERS: PCP Family Medicine; Visit Provider Nurse Practitioner Gerontology
DX: R97.20 Elevated prostate specific antigen [PSA] (principal); N40.1 Benign prostatic hyperplasia with lower urinary tract symptoms; N13.8 Other obstructive and reflux uropathy
CPT/HCPCS: 36415; 51798; 99213; 84153